=== PATIENT | female | born 1970 | race Caucasian/White ===

== ENCOUNTER 2021-04-11 15:47 | Observation (INO) | payer OTHER, SELFPAY ==
--- NOTE | ~2021-04-11 | XR_ITS ---
XR chest 1V portable DATE: 04/11/2021 16:51 INDICATION: Hypoglycemia. Speech difficulty. TECHNIQUE: Portable AP chest on 04/11/2021 at 1648 hours COMPARISON: None FINDINGS: Heart size is is likely within normal range considering magnification associated with AP pr ojection. No pulmonary infiltrate or consolidation, pleural effusion or pulmonary vascular congestion or pneumothorax is detected. IMPRESSION: No active cardiopulmonary disease Reviewed, dictated and finalized at location A.
--- NOTE | ~2021-04-11 | CT_ITS ---
EXAMINATION: CTA brain carotid EXAM DATE: 04/11/2021 17:42 INDICATION: Speech difficulty. Stroke. TECHNIQUE: Noncontrast head CT. Spiral CTA of the carotid arteries was performed with intravenous i njection 100 cc of Omnipaque 350. Axial, coronal, sagittal reformatted images reviewed. Additional r eformatted images created on dedicated 3-D workstation. NASCET comparable standard used to assess th e degree of arterial stenosis. Spiral CT angiogram cerebral arteries performed with the same intrave nous injection of contrast. Source images of the brain CTA transferred to dedicated workstation for 3 -D rotational image creation. Coronal, sagittal maximum intensity pixel images also reviewed. The d ose-length product (DLP) for this examination was 1495.37 mGy-cm. The exposure was tailored accordi ng to patient size, and iterative reconstruction (ASIR) was used as additional dose reduction techniq ue. There is no prior study for comparison. FINDINGS: There is no carotid plaque, 0% carotid stenosis bilaterally. The left vertebral artery is d ominant. There is no carotid or vertebral basilar arterial dissection or fibromuscular dysplasia. Th ere are no cerebral artery aneurysms. There is symmetric cerebral artery arborization. The sagittal, transverse and sigmoid sinuses enhance normally, no venous sinus thrombosis. Internal cerebral veins also enhance normally. There is mild cerebral atrophy and moderate cerebellar atrophy There is no acute intraparenchymal hem orrhage. No evidence of intraparenchymal brain mass lesion. No evidence of acute infarction. There is no mass effect or midline shift. There is no obstructive hydrocephalus suspected. There are no ex tra-axial collections. There are no calvarial acute fractures. Mild to moderate cervical spondylosis . There are no areas of abnormal enhancement on the post contrast images. IMPRESSION: 1. No acute carotid or intracranial findings. 2. Moderate cerebellar, mild cerebral atrophy. Reviewed, dictated and finalized at location A.
--- NOTE | ~2021-04-11 | MR_ITS ---
EXAMINATION: MR brain/brain stem wo/w con DATE: 04/12/2021 10:45 INDICATION: Speech deficit. TECHNIQUE: Magnetic resonance imaging (MRI) of the brain and brainstem was performed without with 14 mL MultiHance intravenous contrast. Sequences included sagittal and axial T1-weighted FSE, axial diff usion-weighted FS EPI, axial T2*-weighted GRE, axial T2-weighted FLAIR Propeller, and axial T2-weight ed Propeller. Postcontrast sequences included axial and coronal T1-weighted FSE. Apparent diffusion c oefficient (ADC) maps were created. COMPARISON: Head CT 04/11/2021 FINDINGS: The cerebellum is small. There is no intracranial hemorrhage, acute infarction, or abnormal intracranial mass lesion. The ventricles are normal in size. There is mild mucosal thickening in the paranasal sinuses. The orbits are normal. There are small bilateral mastoid effusions. IMPRESSION: 1. Diffuse cerebellar atrophy. Reviewed, dictated and finalized at location B.
[2021-04-11 15:55] VITALS: BP 163/84; PULSE 71; RESP 18; TEMP 36.6; O2SAT 100
--- NOTE | 2021-04-11 16:41 | ECG_ITS ---
Measurements Intervals [place] Rate: 74 P: 50 WI: 159 QRS: -18 QRSD: 86 T: -3 QT: 381 QTc: 424 Interpretive Statements SINUS RHYTHM INCOMPLETE RIGHT BUNDLE BRANCH BLOCK LOW QRS VOLTAGE IN PRECORDIAL LEADS VOLTAGE CRITERIA FOR LVH MINIMAL Q WAVES- HIGH LATERAL LEADS BORDERLINE T WAVE ABNORMALITY- INFERIOR LEADS BASELINE ARTIFACT- I, II, III, AVR, AVL, AVF, V3 BORDERLINE ECG Electronically Signed On 04-11-2021 19:35:08 CDT by Wilmer Diaz D.O.
--- NOTE | 2021-04-11 16:42 | ED.GENADULT ---
HPI - General Adult General Chief complaint: Neuro Symptoms/Deficit Stated complaint: SPEECH DIFFICULTY Time Seen by Provider: 04/11/21 16:26 Source: patient and EMS Mode of arrival: EMS Limitations: no limitations History of Present Illness HPI narrative: This is a 50 year old female with history of Diabetes Mellitus and cerebellar ataxia who presents for evaluation of hypoglycemia and speech difficulty. Patient states at baseline she has speech difficulty since her diagnosis of cerebellar ataxia 2 years ago . She states today around 230 pm her blood sugar dropped to 40 after she was given insulin. At that time, she also noticed that her speech seemed more off than usually. She denies focal weakness, numbness, tingling or headache. She denies chest pain, sob, nausea, vomiting or vision change. Related Data Home Medications Medication Instructions Recorded Confirmed aspirin [Adult Low Dose Aspirin] 81 mg PO DAILY 04/11/21 04/11/21 furosemide 20 mg PO DAILY 04/11/21 04/11/21 gabapentin 100 mg PO TID 04/11/21 04/11/21 insulin glargine [Basaglar KwikPen 18 unit SUBCUT QAM 04/11/21 04/11/21 U-100 Insulin] insulin lispro [Admelog SoloStar 5 unit SUBCUT TID 04/11/21 04/11/21 U-100 Insulin] lisinopril 10 mg PO DAILY 04/11/21 04/11/21 loratadine [Claritin] 10 mg PO DAILY 04/11/21 04/11/21 Allergies Allergy/AdvReac Type Severity Reaction Status Date / Time ibuprofen AdvReac Unknown Verified 04/11/21 21:44 Penicillins AdvReac Unknown Verified 04/11/21 21:44 Sulfa (Sulfonamide AdvReac Unknown Verified 04/11/21 21:44 Antibiotics) Review of Systems Review of Systems: All systems reviewed & are unremarkable except as noted in HPI and below Constitutional: Constitutional: Denies chills and Denies fever(s) Eyes: Eyes: Denies change in vision Cardiovascular: Cardiovascular: Denies chest pain and Denies radiating jaw, neck or arm pain Respiratory: Respiratory: Denies cough and Denies dyspnea Gastrointestinal: Gastrointestinal: Denies abdominal pain, Denies nausea and Denies vomiting Neurologic: Denies dizziness, Denies headache(s), Denies focal weakness and Denies numbness PMFSH Past Medical History Medical History (Updated 04/11/21 @ 23:17 by Mónica Hicks MD) Cerebellar ataxia Social History Social History Smoking status: Never smoker Alcohol intake: never Substance use: never Substance use type: does not use Gender identity (if verbalized by the patient): Female Spiritual care concerns: No Exam Const: General: no acute distress and alert Orientation/consciousness: patient oriented x3 Eyes: Pupils: Equal, round and reactive pupils present EOM: EOMs intact bilaterally Chest: Chest palpation & inspection: normal inspection of the chest Resp: Effort & Inspection: normal respiratory effort and no retractions Auscultation: clear to auscultation bilaterally Cardio: Rate: regular rate Rhythm: regular rhythm Heart sounds: no murmurs GI: GI Palp: Yes Soft to palpation, No Tenderness to palpation present (GI) and No Guarding due to palpation present (GI) Auscultation: normal bowel sounds Neuro: General: patient oriented x3, moves all extremities, no meningeal signs, no focal motor deficits and CN's II-XI intact bilaterally Cranial nerves: Yes CN's II-XII intact bilaterally and Yes Nystagmus not present Gait exam (Neuro): Ataxic gait present Motor exam (neuro): Pronator motor function not present Psych: Mental Status: mental status grossly normal Affect: normal affect Course Consultations Consultation #1: I spoke with Dr. Ryan. He will consult. PAtient does not appear to have acute findings. She just reports her chronic symptoms worsened when she became hypoglycemia. She has not focal deficits. Date: 04/11/21 Time: 18:21 Consultation #2: I spoke with hospitalist who accepts patient. Date: 04/11/21 Time: 19:00 Vital Signs Vital signs: Vital Signs Temperature
--- NOTE | 2021-04-11 16:51 | PC.NURSE ---
Pt BG 67 poc. EDP notified and pt given 8oz juice
[2021-04-11 16:53] LABS: Glucose Point of Care 67 (65-105)
[2021-04-11 17:03] LABS: Basophils Percent Auto 0.3 % (0.2-1.2); Eosinophils Absolute Auto 0.1 K/mm3 (0-0.3); Eosinophils Percent Auto 0.5 % (0-4.4); Hematocrit 41.5 % (37.0-47.0); Hemoglobin 13.1 g/dL (12.0-15.0); Immature Granulocyte Absolute 0.06 K/mm3 (0.00-0.031); Immature Granulocyte Percent A 0.5 % (0-0.5); Lymphocytes Absolute Auto 2.03 K/mm3 (0.9-3.2); Lymphocytes Percent Auto 17.5 % (18.3-44.2); Mean Corpuscular HGB Conc 31.6 g/dl (32-36); Mean Corpuscular Volume 88.7 fl (80-100); Mean Platelet Volume 9.4 fl (7.4-10.4); Monocytes Absolute Auto 0.8 K/mm3 (0.1-0.6); Monocytes Percent Auto 7.1 % (2.6-8.5); Neutrophils Absolute Auto 8.6 K/mm3 (1.3-6.7); Neutrophils Percent Auto 74.1 % (45.5-73.1); Platelet Count Result 337 k/mm3 (150-375); Red Blood Count 4.68 M/mm3 (4.2-5.4); Red Cell Distribution Width 12.8 % (11.5-14.5); White Blood Count 11.6 K/mm3 (4.5-10.0)
[2021-04-11 17:13] LABS: Anion Gap 1 mmol/L (8-16); Blood Urea Nitrogen 31 mg/dL (7-17); Calcium 9.4 mg/dL (8.4-10.2); Carbon Dioxide 35 mmol/L (22-30); Chloride 101 mmol/L (98-107); Estimated CRCL calculation 65 ml/min; Estimated Glomerular Filt Rate > 60; Glucose 78 mg/dL (65-105); Potassium 4.7 mmol/L (3.4-5.0); Sodium 137 mmol/L (137-145)
[2021-04-11 17:16] LABS: INR 0.9; Prothrombin Time 12.3 Seconds (11.1-14.7)
[2021-04-11 17:17] LABS: Partial Thromboplastin Time 27.7 SECONDS (22.3-36.8)
[2021-04-11 17:25] LABS: Troponin I < 0.012 ng/mL (0.000-0.034)
[2021-04-11 18:07] LABS: Add Urine Microscopic? YES; Appearance Urine Clear (Clear); Bilirubin Urine Negative (Negative); Blood Urine Negative (Negative); Color Urine Straw (Yellow); Glucose Urine UA Negative (Negative); Ketones Urine Negative (Negative); Leukocyte Esterase Ur Trace LEU/UL (Negative); Nitrate Urine Negative (Negative); Protein Urine Negative (Negative); RBC Urine 0-2 /hpf (0-2); Urobilinogen Urine Negative mg/dL (<2.0)
[2021-04-11 19:13] VITALS: BP 128/69; PULSE 68; RESP 16; O2SAT 100
[2021-04-11 19:20] LABS: Glucose Point of Care 89 (65-105)
--- NOTE | 2021-04-11 19:46 | PM.IMHP ---
H&P: HPI History of Present Illness Date/Time: 04/11/21 19:46 Chief Complaint: This is a 50-year-old female with past medical history significant for insulin-dependent diabetes mellitus cerebellar ataxia patient presented to the emergency room after she had an episode of slurred speech her sugar was 40 at this time she was given glucose gel. Patient was brought to the emergency room by EMS. According to patient she has been in her usual state of health up until this happened she denies any fevers chills or rigors no nausea no vomiting no diarrhea no shortness of breath no cough no sputum production no pain or burning with urination no focal weakness no dysphagia no abdominal pain no leg swelling no palpitations no chest pain. Preliminary workup was essentially nonrevealing patient states that she is back to her usual. A CT of the head show no acute abnormalities. Patient has been placed in observation. Review of Systems Review of Systems: All systems reviewed & are unremarkable except as noted in HPI and below Constitutional: Constitutional: Denies chills, Denies fever(s) and Denies headache(s) Eyes: Eyes: Denies change in vision ENT: Denies dizziness and Denies headache(s) Cardiovascular: Cardiovascular: Denies chest pain, Denies radiating jaw, neck or arm pain and Denies dyspnea Respiratory: Respiratory: Denies cough and Denies dyspnea Gastrointestinal: Gastrointestinal: Denies abdominal pain, Denies nausea and Denies vomiting Musculoskeletal: Musculoskeletal: Denies numbness Neurologic: Denies dizziness, Denies headache(s), Denies focal weakness and Denies numbness [facility] Past Medical History Medical History (Updated 04/11/21 @ 21:43 by Estrella Nixon MD) Cerebellar ataxia Social History Social History Smoking status: Never smoker Alcohol intake: never Substance use: never Substance use type: does not use Gender identity (if verbalized by the patient): Female Spiritual care concerns: No Meds Home Medications and Allergies Home Medications Medication Instructions Recorded Confirmed Type aspirin [Adult Low Dose Aspirin] 81 mg PO DAILY 04/11/21 04/11/21 History furosemide 20 mg PO DAILY 04/11/21 04/11/21 History gabapentin 100 mg PO TID 04/11/21 04/11/21 History insulin glargine [Basaglar KwikPen 18 unit SUBCUT QA 04/11/21 04/11/21 History U-100 Insulin] insulin lispro [Admelog SoloStar 5 unit SUBCUT TID 04/11/21 04/11/21 History U-100 Insulin] lisinopril 10 mg PO DAILY 04/11/21 04/11/21 History loratadine [Claritin] 10 mg PO DAILY 04/11/21 04/11/21 History Allergies Allergy/AdvReac Type Severity Reaction Status Date / Time ibuprofen AdvReac Unknown Verified 04/11/21 21:44 Penicillins AdvReac Unknown Verified 04/11/21 21:44 Sulfa (Sulfonamide AdvReac Unknown Verified 04/11/21 21:44 Antibiotics) Vital Signs Vital Signs - 24 hr 04/11/21 15:55 04/11/21 19:13 Temperature 97.9 F Pulse Rate 71 68 Respiratory Rate 18 16 Blood Pressure 163/84 H 128/69 Pulse Oximetry 100 100 Exam Narrative: Exam Narrative: Lying in [facility] Const: General: no acute distress and alert Orientation/consciousness: patient oriented x3 HENMT: Head: normal to inspection and normocephalic Ears: hearing grossly normal bilaterally General nose exam: Normal external nose present Face and sinus: normal facial exam Mouth: Yes Normal oral and palatal mucosa present Teeth and gingiva: dentition normal Throat: posterior oropharynx normal Eyes: EOM: EOMs intact bilaterally Neck: Neck: no meningeal signs Resp: Effort & Inspection: normal respiratory effort and no retractions Auscultation: clear to auscultation bilaterally Cardio: Rate: regular rate Rhythm: regular rhythm Heart sounds: no murmurs GI: Auscultation: normal bowel sounds Skin: General skin exam: normal color and turgor normal Lesions: no lesions Rashes: no rashes Wounds: no wounds Neuro: General: patient
--- NOTE | 2021-04-11 21:01 | ADMGEN ---
This patient, Martha Christopher, was admitted to Medical Room [facility]- at 2049. Patient/family oriented to hospital policies and general routines including ID bracelet, bed and alarms, visiting hours, pain management, procedures, bathroom and other care routines, personal items, smoking policy, room service/diet, and visiting hours. Information on how to activate the Rapid Response Team has been discussed. Patient/Family are encouraged to report perceived risks to care and to ask questions if they do not understand what they are told or what they should do.
[2021-04-11 21:02] VITALS: PULSE 89
[2021-04-11 21:29] LABS: Glucose Point of Care 237 (65-105)
[2021-04-11 22:00] VITALS: BP 142/58; PULSE 93; RESP 21; TEMP 36.7; O2SAT 100; BMI 30.1
[2021-04-12] VITALS (7 sets, daily range): BP systolic 116–128; BP diastolic 68–74; PULSE 61–108; RESP 18–20; TEMP 36.1–36.8; O2SAT 98
[2021-04-12 07:56] LABS: Glucose Point of Care 140 (65-105)
--- NOTE | 2021-04-12 08:00 | PC.NURSE ---
Christal Fajardo Pa notified of glucose 140 and pt eating breakfast and home dose of insulin held on admission.
[2021-04-12] MEDS: GABAPENTIN 100 MG CAPSULE PO (08:33)
[2021-04-12] MEDS: lisinopriL 10 MG TABLET PO (08:33)
[2021-04-12] MEDS: LORATADINE 10 MG TABLET PO (08:33)
[2021-04-12] MEDS: ASPIRIN 81 MG CHEWABLE TABLET PO (08:33)
[2021-04-12] MEDS: FUROSEMIDE 20 MG TABLET PO (08:33)
[2021-04-12 09:14] LABS: Hemoglobin A1C 8.4 % (<5.7)
[2021-04-12 09:18] LABS: Hematocrit 39.9 % (37.0-47.0); Hemoglobin 12.8 g/dL (12.0-15.0); Mean Corpuscular HGB Conc 32.1 g/dl (32-36); Mean Corpuscular Hemoglobin 28.1 pg (26-34); Mean Corpuscular Volume 87.7 fl (80-100); Mean Platelet Volume 9.7 fl (7.4-10.4); Platelet Count Result 325 k/mm3 (150-375); Red Blood Count 4.55 M/mm3 (4.2-5.4); White Blood Count 7.8 K/mm3 (4.5-10.0)
[2021-04-12 09:19] LABS: Potassium 4.6 mmol/L (3.4-5.0)
[2021-04-12 09:28] LABS: Anion Gap 0 mmol/L (8-16); Blood Urea Nitrogen 22 mg/dL (7-17); Calcium 9.1 mg/dL (8.4-10.2); Carbon Dioxide 33 mmol/L (22-30); Chloride 103 mmol/L (98-107); Estimated CRCL calculation 65 ml/min; Estimated Glomerular Filt Rate > 60; Glucose 197 mg/dL (65-105); Sodium 136 mmol/L (137-145)
--- NOTE | 2021-04-12 10:57 | PC.NURSE ---
Christal UP notified of glucose 319 and no insulin ordered. She will put in new med orders.
[2021-04-12 11:04] LABS: Glucose Point of Care 319 (65-105)
[2021-04-12] MEDS: INSULIN GLARGINE (*BKC) 100 UNITS/ML 18 UNITS SUB-Q (11:12)
[2021-04-12] MEDS: INSULIN ASPART (*BKC) 100 UNITS/ML SUB-Q (11:12)
--- NOTE | 2021-04-12 12:59 | PM.DS ---
DS: Admitting Diagnosis Admitting Diagnosis Admitting Diagnosis: Hypoglycemia DS: Discharge Diagnosis Discharge Diagnosis (1) Hypoglycemia due to type 1 diabetes mellitus: Code(s): E10.649 - Type 1 diabetes mellitus with hypoglycemia without coma Status: Acute Assessment and Plan: Presented with blood sugar of 40 after receiving her insulin. She reports she has been eating regularly and had not been ill. She very rarely has hypoglycemic episodes. She reports nursing staff assists her with her medications but notes that she may have received too much insulin. Blood sugars improved and she had no further episodes of hypoglycemia. A1c 8.4. No changes were made to her insulin regimen. She is established with an gas usage meter clerk and has follow up scheduled in 1 month. Discussed importance of monitoring glucose levels, maintaining diabetic diet, and strict adherance to insulin regimen. Hypoglycemic protocol should be initiated at [facility]. (2) Speech disturbance: Code(s): R47.9 - Unspecified speech disturbances Status: Acute Assessment and Plan: Chronic due to cerebellar dysfunction worsened by hypoglycemia. Initially concerned for CVA at presentation, however head/neck CTA and brain MRI ordered in ED were negative for acute findings. She has slow speech secondary to her cerebellar dysfunction but her speech was at her baseline following resolution of hypoglycemic episode. (3) Cerebellar ataxia: Code(s): G11.9 - Hereditary ataxia, unspecified Status: Acute Assessment and Plan: No acute issues. Cerebellar atrophy noted on brain MRI. Follow-up with PCP as an outpatient. DS: Summary Hospital Course Hospital Course: Date of admission: 04/11/21 Date of discharge: 04/12/21 Martha Christopher is a 50 year old female with a history of type 1 diabetes mellitus and cerebellar ataxia who presented to the emergency department on 04/11/2021 from her detention due to concerns for speech changes from her baseline and was found to have a blood sugar of 40. Upon presentation to the emergency department, her vital signs were stable, CBC and BMP unremarkable, troponin negative, urinalysis without concerns for infection, CXR with no cardiopulmonary disease, and head/neck CTA with no acute carotid or intracranial findings. She was admitted to the hospitalist service for further evaluation and management. Please see above for further details. She was at her baseline. She was tolerating her diet and her blood sugars were stable. Given her overall improvement, she was determined to no longer require inpatient care and was felt to be stable for discharge. We discussed worrisome signs and symptoms for which to return and she was educated on her medications. She was discharged in hemodynamically stable condition on 04/12/2021. Status at Discharge Overall status at discharge: patient is back to baseline Time Spent with Patient Time attestation: Total time spent providing and/or coordinating discharge services: 45 minutes Time spent: Greater than 30 minutes Exam Narrative: Exam Narrative: Ms. Christopher is a well-nourished 50-year-old female who is lying semi-recumbent in bed. She appears comfortable and is in NARD. Neuro: awake, alert and oriented x4, speech slow but clear, no focal neuro deficits noted HEENMT: normocephalic, atraumatic, EOMI, sclerae anicteric, moist oral mucosa, tongue midline, nares patent Neck: supple, no lymphadenopathy Respiratory: clear to auscultation bilaterally, nonlabored breathing Cardio: regular rate, regular rhythm with S1-S2 Abdomen: nondistended, normoactive bowel sounds, soft, nontender to palpation, no rigidity or guarding Extremities: no edema, erythema, cyanosis, clubbing, or tenderness to palpation, DP pulses 2+ bilaterally Skin: no rashes or lesions, warm and dry Psych: appropriate mood and affect, judgment and insight intact DS: Data Data Completed and Pending
[2021-04-12 14:03] LABS: Glucose Point of Care 257 (65-105)
--- NOTE | 2021-04-12 15:27 | WPDNEURCNPN ---
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 no acute problem otherwise blood sugar is 256 with hemoglobin A1c 8.4 and negative UA patient is not receiving any specific medication except the aspirin insulin furosemide gabapentin lisinopril and loratadine treatment will be continued as such Consult date: 04/12/21 Time Seen: 15:00 HPI: Martha Christopher is a 50 year old [id number] years old right-handed female has been admitted to [facility] through the emergency room the complains of slurred speech and a blood sugar of 40 she was brought to the ER by EMS patient reportedly has been in her usual state of health up until this particular incident occurred she gave no history of any of the any other generalized symptomatology initial CT scan of the head was negative patient has ongoing history of cerebellar ataxia, never smoke, never drinker and on aspirin insulin gabapentin and furosemide in addition to lisinopril and loratadine. Evaluation up until now includes the MRI of the brain which documented cerebellar atrophy without any bleed or space-occupying lesion CTA also documented moderate cerebellar and mild cerebral atrophy with no evidence of vascular involvement Review of Systems Review of Systems: All systems reviewed & are unremarkable except as noted in HPI and below PMFSH Past Medical History Medical History Cerebellar ataxia Social History Social History Smoking status: Never smoker Alcohol intake: never Substance use: never Substance use type: does not use Gender identity (if verbalized by the patient): Female Spiritual care concerns: No Meds Home Medications and Allergies Home Medications Medication Instructions Recorded Confirmed Type Eduarda ZhangPen U-100 Insulin 18 unit SUBCUT QAM 04/11/21 04/11/21 History aspirin 81 mg PO DAILY 04/11/21 04/11/21 History furosemide 20 mg PO DAILY 04/11/21 04/11/21 History gabapentin 100 mg PO TID 04/11/21 04/11/21 History insulin lispro [Admelog SoloStar 5 unit SUBCUT TID 04/11/21 04/11/21 History U-100 Insulin] lisinopril 10 mg PO DAILY 04/11/21 04/11/21 History loratadine [Claritin] 10 mg PO DAILY 05/13/21 05/13/21 History Allergies Allergy/AdvReac Type Severity Reaction Status Date / Time ibuprofen AdvReac Unknown Verified 04/11/21 21:44 Penicillins AdvReac Unknown Verified 04/11/21 21:44 Sulfa (Sulfonamide AdvReac Unknown Verified 04/11/21 21:44 Antibiotics) Vital Signs Vital Signs - 24 hr 04/11/21 15:55 04/11/21 19:13 04/11/21 21:02 Temperature 36.6 C Pulse Rate 71 68 89 Respiratory Rate 18 16 Blood Pressure 163/84 H 128/69 Pulse Oximetry 100 100 04/11/21 22:00 04/12/21 00:14 04/12/21 04:00 Temperature 36.7 C Pulse Rate 93 75 61 Respiratory Rate 21 H Blood Pressure 142/58 H Pulse Oximetry 100 04/12/21 06:00 04/12/21 08:00 04/12/21 08:04 Temperature 36.8 C Pulse Rate 81 74 81 Respiratory Rate 20 20 Blood Pressure 128/68 Pulse Oximetry 98 98 04/12/21 12:04 04/12/21 14:00 Temperature 36.1 C L Pulse Rate 108 H 79 Respiratory Rate 18 Blood Pressure 116/74 Pulse Oximetry 98 Exam Const: General: cooperative, comfortable, no acute distress, alert and awake Nutritional Appearance: average body habitus and well nourished Orientation/consciousness: oriented to person, oriented to place and oriented to time Limitations: physical limitations HENMT: Head: normal to inspection and normocephalic Ears: hearing grossly normal bilaterally General nose exam: Normal external nose present Face and sinus: normal facial exam and face symmetric Mouth: Yes Normal oral and palatal mucosa present, Yes lip normal and Yes tongue normal Eyes: General: appearance normal, both eyes and all related structures Visual Null: normal visual null by confrontation Alig
== END 2021-04-12 15:55 ==
LOC: ANHED 16:26 → ANH2MED 20:11
PROVIDERS: Physician Assistant; Admitting Provider Internal Medicine; Emergency Provider General Practice; PCP Internal Medicine; Visit Provider Internal Medicine
DX: E10.649 Type 1 diabetes mellitus with hypoglycemia without coma (principal); R47.81 Slurred speech; G11.9 Hereditary ataxia, unspecified; Z79.4 Long term (current) use of insulin
CPT/HCPCS: 36415; 70496; 70498; 70553; 71045; 80048; 81001; 82948; 83036; 84484; 85025; 85027; 85610; 85730; 93005; 99285; A9270; A9577; G0378; G0379; J1815; Q9967

== ENCOUNTER 2024-10-07 15:01 | Emergency (ER) | payer MEDICARE, SELFPAY ==
--- NOTE | ~2024-10-07 | XR_ITS ---
EXAMINATION: XR chest 2V DATE: 10/07/2024 15:28 INDICATION: Chest pain. TECHNIQUE: Frontal and lateral views of the chest were obtained. COMPARISON: Chest single view 04/11/2021 FINDINGS: There are reticular opacities in the lower lung zones. No pleural effusion or pneumothorax. The heart size is normal. There is chronic height loss of multiple vertebral bodies. There is a gall stone in the gallbladder. IMPRESSION: 1. Reticular opacities in the lower lung zones, consistent with atelectasis versus scarring. Reviewed, dictated and finalized at location A. MOMETER OPERATOR IMPRESSION: 1. Reticular opacities in the lower lung zones, consistent with atelectasis john paul em scarring.
--- NOTE | 2024-10-07 15:04 | ECG_ITS ---
Test Date: 2024-10-07 15:11:26 Measurements Intervals [place] Rate: 68 P: 52 [place]: 153 QRS: -27 QRSD: 86 T: 17 QT: 375 QTc: 399 Interpretive Statements SINUS RHYTHM POSSIBLE LEFT ATRIAL ENLARGEMENT INCOMPLETE RIGHT BUNDLE BRANCH BLOCK LOW QRS VOLTAGE IN PRECORDIAL LEADS MINIMAL Q WAVES- HIGH LATERAL LEADS BORDERLINE T WAVE ABNORMALITY- ANTERIOR LEADS BASELINE ARTIFACT- I, II, III, AVR, AVL ,AVF, V1-V2 BORDERLINE ECG No previous ECG available for comparison Electronically Signed On 10-07-2024 15:13:26 [employer] by Wilmer Diaz D.O.
[2024-10-07 15:05] VITALS: BP 142/67; PULSE 69; RESP 16; TEMP 36.4; O2SAT 92
--- NOTE | 2024-10-07 17:25 | PC.NURSE ---
Pts sister called to state pt is an insulin dependent diabetic.
[2024-10-07 17:51] LABS: Glucose Point of Care 113 mg/dl (65-105)
--- NOTE | 2024-10-07 18:22 | ED_ITS ---
HPI - Chest Pain General Chief Complaint: Chest Pain Stated Complaint: CP Time Seen by Provider: 10/07/24 18:06 Source: patient Mode of arrival: ambulatory Limitations: no limitations History of Present Illness HPI narrative: 54-year-old female here for chest pain. Started about an hour prior to arrival and given how crowded the ER was, 4 hours prior to me seeing her. She says it was central, felt like squeezing, but is gone now. Lasted about an hour. Took an aspirin. She got 2 nitroglycerin was in EMS and does not feel like it did very much for it. Related Data Home Medications Medication Instructions Recorded Confirmed aspirin 81 mg tablet 81 mg PO DAILY 04/11/21 04/11/21 furosemide 20 mg tablet 20 mg PO DAILY 04/11/21 04/11/21 gabapentin 100 mg tablet 100 mg PO TID 04/11/21 04/11/21 insulin glargine 100 unit/mL (3 18 unit subcut QAM 04/11/21 04/11/21 mL) subcutaneous pen (Basaglar KwikPen U-100 Insulin) insulin lispro 100 unit/mL 5 unit subcut TID 04/11/21 04/11/21 subcutaneous pen (Admelog SoloStar U-100 Insulin lispro) lisinopril 10 mg tablet 10 mg PO DAILY 04/11/21 04/11/21 loratadine 10 mg tablet (Claritin) 10 mg PO DAILY 04/11/21 04/11/21 Allergies Allergy/AdvReac Type Severity Reaction Status Date / Time ibuprofen AdvReac Unknown Verified 06/03/22 16:01 Penicillins AdvReac Unknown Verified 06/03/22 16:01 Sulfa (Sulfonamide AdvReac Unknown Verified 06/03/22 16:01 Antibiotics) Review of Systems Review of Systems: All systems reviewed & are unremarkable except as noted in HPI and below PMFSH Past Medical History Medical History Cerebellar ataxia Type 1 diabetes mellitus Social History Social History Smoking status: Never smoker Alcohol intake: never Substance use: never Substance use type: does not use Gender identity (if verbalized by the patient): Female Spiritual care concerns: No Exam Narrative: Constitutional: Generally well appearing, no acute distress Head: Atraumatic, no deformities. Eyes: Pupils equal, round, and reactive to light. Neck: Supple, no tracheal deviation, no JVD. ENMT: Mucous membranes moist Cardiovascular: S1, S2 auscultated. No murmurs, rubs, or gallops. No S3/S4. Normal Distal pulses. No peripheral edema. Respiratory: Lung sounds equal. No wheezes, rales, or rhonchi. Gastrointestinal: Abdomen was soft and non-tender. Non-distended. No rebound or guarding. Genitourinary: Deferred Musculoskeletal: Normal muscle tone and bulk. No obvious deformities or tend erness over extremities. Skin: No rashes. Neurological: Strength 5/5 in extremities. Cranial nerves I-XII grossly intact. Distal sensation intact. Mental Status: Awake, alert and oriented x3. Follows commands Course Vital Signs Vital signs: Vital Signs Temperature 36.4 C 10/07/24 15:05 Pulse Rate 69 10/07/24 15:05 Respiratory Rate 16 10/07/24 15:05 Blood Pressure 142/67 H 10/07/24 15:05 Pulse Oximetry 92 10/07/24 15:05 Oxygen Delivery Room Air 10/07/24 15:05 Temperature 36.4 C 10/07/24 15:05 Pulse Rate 78 10/07/24 19:23 Respiratory Rate 15 10/07/24 19:23 Blood Pressure 135/60 10/07/24 19:23 Pulse Oximetry 98 10/07/24 19:23 Oxygen Delivery Room Air 10/07/24 18:29 MDM - Chest Pain MDM Narrative Medical decision making narrative: 54-year-old female here for chest pain. Unfortunately she was in the waiting room for 3 hours. Currently chest pain is a 1/10. Exam is reassuring and she is very well-appearing. Plan to obtain cardiac workup. Concern for ACS. Wells score is 0. Making PE very unlikely. Workup shows no focal abnormality patient has been asymptomatic for several hours now. Heart score is low risk. Discussed with patient that she can return at any time if she develops any new or worsening symptoms that she needs to return immediately. Pt feeling improved and would like to go home at this point. Return precautions were given to the patient include any new or worsening symptoms or development of and not limited to any chest pain, shortness of breath, lightheadedness, abdominal pain, fevers, chills. Patient understands and agrees. They are to follow-up with her PCP. All questions were answered. I reviewed the patient's vital signs, history, allergies, and labs and imaging workup. Lab Data 10/07/24 18:33 10/07/24 18:33 Labs: Lab Results 10/07/24 10/07/24 Range/Units 17:48 18:33 WBC 10.1 H (4.5-10.0) K/mm3 RBC 4.36 (4.2-5.4) M/mm3 Hgb 12.5 (12.0-15.0) g/dL Hct 38.0 (37.0-47.0) % MCV 87.2 (80-100) fl MCH 28.7 (26-34) pg MCHC 32.9 (32-36) g/dl RDW 13.1 (11.5-14.5) % Plt Count 294 (150-375) k/mm3 MPV 9.5 (7.4-10.4) fl Immature Gran % (Auto) 0.3 (0-0.5) % Neut % (Auto) 62.3 (45.5-73.1) % Lymph % (Auto) 28.7 (18.3-44.2) % [place] % (Auto) 6.8 (2.6-8.5) % Eos % (Auto) 1.5 (0-4.4) % Baso % (Auto) 0.4 (0.2-1.2) % Lymph # (Auto) 2.89 (0.9-3.2) K/mm3 [place] # (Auto) 0.7 H (0.1-0.6) K/mm3 Eos # (Auto) 0.2 (0-0.3) K/mm3 Baso # (Auto) 0.0 (0.0-0.1) K/mm3 Abs Immat Gran (auto) 0.03 (0.00-0.031) K/mm3 Absolute Neuts (auto) 6.3 (1.3-6.7) K/mm3 Absolute Nucleated RBC 0.000 (0.0-0.012) K/mm3 Nucleated RBC % 0.0 (0.0-0.2) % PT 12.7 (11.1-14.7) Seconds INR 0.9 APTT 26.2 (22.3-36.8) Seconds Sodium 135 L (137-145) mmol/L Potassium 4.8 (3.4-5.0) mmol/L Chloride 96 L (98-107) mmol/L Carbon Dioxide 31 H (22-30) mmol/L Anion Gap 8 (4-12) mmol/L BUN 22 H (7-17) mg/dL Creatinine 0.90 (0.7-1.0) mg/dL Estim Creat Clear Calc 60 ml/min Estimated GFR > 60 (59 - ) Glucose 128 H (65-110) mg/dL POC Capillary Glucose 113 H (65-105) mg/dl Calcium 9.5 (8.4-10.2) mg/dL Total Bilirubin 0.3 (0.2-1.3) mg/dL AST 26 (14-36) U/L ALT 19 (6-35) U/L Alkaline Phosphatase 91 (38-126) U/L Troponin I < 0.012 (0.000-0.034) ng/mL Total Protein 8.0 (6.3-8.2) g/dL Albumin 4.3 (3.5-5.1) g/dL Lipase 61 (23-300) U/L Critical Care Time Critical Care Time Critical Care Time: Yes Total Critical Care Time: 35 Discharge Plan Discharge Clinical Impression: Atypical chest pain Patient Disposition: Home, Self-Care Condition: Stable Instructions: Antibiotic Form, Chest Pain (ED) Prescriptions: No Action lisinopril 10 mg Tablet 10 mg PO DAILY aspirin 81 mg Tablet 81 mg PO DAILY furosemide 20 mg Tablet 20 mg PO DAILY loratadine [Claritin] 10 mg Tablet 10 mg PO DAILY gabapentin 100 mg Tablet 100 mg PO TID insulin lispro [Admelog SoloStar U-100 Insulin] 100 unit/mL Insulin Pen 5 unit SUBCUT TID Rx Instructions: TID with meals Basaglar KwikPen U-100 Insulin 100 unit/mL (3 mL) Insulin Pen 18 unit SUBCUT QAM Follow-up/Referrals: Otilio,ANNEL Douglass [Primary Care Provider] - Time of Disposition: 21:35
[2024-10-07 18:30] VITALS: BP 140/68; PULSE 83; RESP 16; O2SAT 100
[2024-10-07 18:40] LABS: Basophils Percent Auto 0.4 % (0.2-1.2); Eosinophils Absolute Auto 0.2 K/mm3 (0-0.3); Eosinophils Percent Auto 1.5 % (0-4.4); Hemoglobin 12.5 g/dL (12.0-15.0); Immature Granulocyte Absolute 0.03 K/mm3 (0.00-0.031); Immature Granulocyte Percent A 0.3 % (0-0.5); Lymphocytes Absolute Auto 2.89 K/mm3 (0.9-3.2); Lymphocytes Percent Auto 28.7 % (18.3-44.2); Mean Corpuscular HGB Conc 32.9 g/dl (32-36); Mean Corpuscular Hemoglobin 28.7 pg (26-34); Mean Corpuscular Volume 87.2 fl (80-100); Mean Platelet Volume 9.5 fl (7.4-10.4); Monocytes Absolute Auto 0.7 K/mm3 (0.1-0.6); Monocytes Percent Auto 6.8 % (2.6-8.5); Neutrophils Absolute Auto 6.3 K/mm3 (1.3-6.7); Neutrophils Percent Auto 62.3 % (45.5-73.1); Platelet Count Result 294 k/mm3 (150-375); Red Blood Count 4.36 M/mm3 (4.2-5.4); Red Cell Distribution Width 13.1 % (11.5-14.5); White Blood Count 10.1 K/mm3 (4.5-10.0)
[2024-10-07 18:51] LABS: Alanine Aminotransferase 19 U/L (6-35); Albumin Level 4.3 g/dL (3.5-5.1); Alkaline Phosphatase 91 U/L (38-126); Anion Gap 8 mmol/L (4-12); Aspartate Amino Transferase 26 U/L (14-36); Bilirubin,Total 0.3 mg/dL (0.2-1.3); Blood Urea Nitrogen 22 mg/dL (7-17); Calcium 9.5 mg/dL (8.4-10.2); Carbon Dioxide 31 mmol/L (22-30); Chloride 96 mmol/L (98-107); Estimated CRCL calculation 60 ml/min; Estimated Glomerular Filt Rate > 60; Glucose 128 mg/dL (65-110); Lipase 61 U/L (23-300); Potassium 4.8 mmol/L (3.4-5.0); Sodium 135 mmol/L (137-145)
[2024-10-07 18:53] LABS: INR 0.9; Prothrombin Time 12.7 Seconds (11.1-14.7)
[2024-10-07 18:54] LABS: Partial Thromboplastin Time 26.2 Seconds (22.3-36.8)
[2024-10-07] MEDS: dexAMETHasone SOD PHOS INJ 10 MG/ML 1 ML VIAL IV PUSH (18:57)
[2024-10-07 19:02] LABS: Troponin I < 0.012 ng/mL (0.000-0.034)
[2024-10-07 19:23] VITALS: BP 135/60; PULSE 78; RESP 15; O2SAT 98
--- NOTE | 2024-10-07 19:26 | PC.NURSE ---
Assumed care of pt after receiving report from MILLIE Del Cid @[phone]
[2024-10-07 21:44] VITALS: BP 145/65; PULSE 87; RESP 20; O2SAT 100
--- NOTE | 2024-10-07 21:50 | PC.NURSE ---
Patient up for dc but does not qualify for ambulance. This RN spoke with RN from [facility] regarding pts contacts. RN stated all of pts contacts live out of town and she would call back after speaking with her director. @[phone]
--- NOTE | 2024-10-07 22:30 | PC.NURSE ---
MILLIE Dougherty at [facility] called asking if pt could be admitted. This RN informed her that pts can not be admitted unless theres good reasoning. MILLIE Dougherty stated she would call the BOROUGH COORDINATOR of the facility to ask about paying for a taxi. @[phone]
--- NOTE | 2024-10-07 23:47 | PC.NURSE ---
Spoke with MILLIE Dougherty. RN stated they were trying to find someone within the facility who could pay burgos for pt cab ride back to facility. I informed RN that cab [employer] take cards over the phone. RN stated she would call cab company and call me back with update/ETA
[2024-10-07 23:52] VITALS: BP 141/72; PULSE 82; RESP 15; O2SAT 98
--- NOTE | 2024-10-08 00:05 | PC.NURSE ---
MILLIE Dougherty called stating their facility has paid for a cab for the pt and should be here in 10 minutes.
== END 2024-10-08 00:21 | disposition home or self-care (01) ==
PROVIDERS: Emergency Medicine; Emergency Provider Emergency Medicine; PCP Physician Assistant
DX: R07.89 Other chest pain (principal); E10.9 Type 1 diabetes mellitus without complications; Z79.4 Long term (current) use of insulin; Z79.82 Long term (current) use of aspirin
CPT/HCPCS: 36415; 71046; 80053; 82948; 83690; 84484; 85025; 85610; 85730; 93005; 96374; 99284; J1100

== ENCOUNTER 2025-03-24 00:11 | Emergency (ER) | payer MEDICARE, MEDICAID, SELFPAY ==
[2025-03-24] VITALS (55 sets, daily range): BP systolic 101–156; BP diastolic 52–81; PULSE 62–83; RESP 10–20; TEMP 36.4–36.6; O2SAT 94–100
--- NOTE | ~2025-03-24 | XR_ITS ---
Left Shoulder Technique: AP and axillary views were obtained. Clinical History: Pain Findings: No fracture or dislocation is seen. Osseous alignment is anatomic. The glenohumeral and acr omioclavicular joint spaces are preserved. Soft tissues are unremarkable. Impression: Unremarkable left shoulder radiographs. Reviewed, dictated and finalized at [facility]. Impression: Unremarkable left shoulder radiographs.
--- NOTE | ~2025-03-24 | XR_ITS ---
Clinical Indication: Chest pain PA and lateral views of the chest: Comparison: 10/07/2024 Findings: The lungs are clear, without evidence of focal consolidation or pleural effusion. Cardiome diastinal silhouette is within normal limits. Bones and soft tissues are unremarkable. Impression: Normal chest. Reviewed, dictated and finalized at location . Impression: Normal chest.
--- NOTE | 2025-03-24 00:16 | ECG_ITS ---
Test Date: 2025-03-24 00:18:12 Measurements Intervals [place] Rate: 79 P: 49 [place]: 133 QRS: -18 QRSD: 89 T: 36 QT: 382 QTc: 439 Interpretive Statements SINUS RHYTHM LOW QRS VOLTAGE IN PRECORDIAL LEADS POSSIBLE RIGHT VENTRICULAR CONDUCTION DELAY BASELINE ARTIFACT- I, III, AVR, AVL, AVF, V4-V6 BORDERLINE ECG Compared to ECG 10/07/2024 15:11:26 NO SIGNIFICANT CHANGE Electronically Signed On 03-24-2025 07:09:00 CDT by Wilmer Diaz D.O.
[2025-03-24 00:30] LABS: Basophils Percent Auto 0.4 % (0.2-1.2); Eosinophils Absolute Auto 0.2 K/mm3 (0-0.3); Eosinophils Percent Auto 2.1 % (0-4.4); Hematocrit 34.3 % (37.0-47.0); Hemoglobin 10.8 g/dL (12.0-15.0); Immature Granulocyte Absolute 0.04 K/mm3 (0.00-0.031); Immature Granulocyte Percent A 0.4 % (0-0.5); Lymphocytes Absolute Auto 2.88 K/mm3 (0.9-3.2); Lymphocytes Percent Auto 31.7 % (18.3-44.2); Mean Corpuscular HGB Conc 31.5 g/dl (32-36); Mean Corpuscular Volume 88.9 fl (80-100); Mean Platelet Volume 9.5 fl (7.4-10.4); Monocytes Absolute Auto 0.9 K/mm3 (0.1-0.6); Monocytes Percent Auto 9.5 % (2.6-8.5); Neutrophils Absolute Auto 5.1 K/mm3 (1.3-6.7); Neutrophils Percent Auto 55.9 % (45.5-73.1); Platelet Count Result 279 k/mm3 (150-375); Red Blood Count 3.86 M/mm3 (4.2-5.4); Red Cell Distribution Width 13.8 % (11.5-14.5); White Blood Count 9.1 K/mm3 (4.5-10.0)
[2025-03-24 00:39] LABS: Alanine Aminotransferase 22 U/L (6-35); Albumin Level 3.7 g/dL (3.5-5.1); Alkaline Phosphatase 90 U/L (38-126); Anion Gap 10 mmol/L (4-12); Aspartate Amino Transferase 26 U/L (14-36); Bilirubin,Total 0.2 mg/dL (0.2-1.3); Blood Urea Nitrogen 29 mg/dL (7-17); Calcium 8.6 mg/dL (8.4-10.2); Carbon Dioxide 27 mmol/L (22-30); Chloride 95 mmol/L (98-107); Estimated CRCL calculation 67 ml/min; Estimated Glomerular Filt Rate > 60; Glucose 287 mg/dL (65-110); Lipase 79 U/L (23-300); Potassium 4.1 mmol/L (3.4-5.0); Sodium 132 mmol/L (137-145)
[2025-03-24 00:50] LABS: Troponin I < 0.012 ng/mL (0.000-0.034)
[2025-03-24 00:51] LABS: INR 0.9; Prothrombin Time 12.5 Seconds (11.1-14.7)
--- OUTSIDE RECORDS SUMMARY | 2025-03-24 00:51 | XMS_ITS | Continuity of Care Document ---
Author Organization [facility] Address [address] [place] [address] Phone Care Team Providers Care Transmission Maintenance Supervisor Name Role Phone Salinas OD, Colby Unavailable Unavailable Procedures Procedure Date Cntct Lens Hydrophilic Toric Or Prism [facility] [employer] Eye Exam & Treatment Refraction Contact Lens Hydrophilic, Spherical [facility] CL Replacement - [employer] Other 00[employer] No Charge Contact Lens Check Eye Exam & Treatment Refraction No Charge Contact Lens Check Eye Exam & Treatment Refraction Advance Directives Directive Yes / No Effective Date File Name No Information Encounters Encounter Description Practice Location Reason(s) For Visit Diagnoses Date Provider Providers Copied on Encounter [facility], [id number] [place] [address] [address], [place], [place], [id number], [place] tel:[phone] [facility] No Information 8-201 0 Salinas OD Colby. [address] , [address], [place], [address], [place]. tel:[phone] [facility], [address], [place], [place], [id number], [place] tel:[phone] [facility] No Information Hima-1 0-201 0 Salinas OD Colby. [address] , [address], [place], [address], [place]. tel:[phone] [facility], [address] [place] [address] [address], [place], [place], [id number], [place] tel:[phone] [facility] [place] No Information Apr-0 9-201 0 Salinas OD Colby. [address] , [address], [place], [place], [facility], [place]. tel:[phone] [facility], [address] [place] [address] [address], [place], [place], [id number], [place] tel:[phone] [facility] [place] No Information Hima-2 8-200 9 Salinas OD Colby. [address] , [address], [place], [place], [facility], [place]. tel:[phone] [facility], [address] [place] [address] [address], [place], [place], [address], [place] tel:[phone] [facility] [place] No Information May-2 1-200 9 Salinas OD Colby. [address] , [address], [place], [place], [facility], [place]. tel:[phone] [facility], [address], [place], [place], [id number], [place] tel:[phone] [facility] No Information Hima-1 0-200 9 Salinas OD Colby. [address] , [address], [place], [address], [place]. tel:[phone] Referring Provider: Teofilo Mcmanus, [address] [place], [address]. tel:[phone] [facility], [address], [place], [place], [id number], [place] tel:[phone] [facility] No Information Mar-2 3-200 7 Salinas OD Colby. [address] , [address], [place], [address], [place]. tel:[phone] [facility], [address], [place], [place], [address], [place] tel:[phone] [facility] No Information Mar-0 7-200 7 Salinas OD Colby. [address] , [address], [place], [address], [place]. tel:[phone] Family History Family Member Type Diagnosis Age At Onset No Information Payers Payer name Insurance type Covered democrat ID Authoriza tion(s) No Information Social History Type Description Quantity Date Captured Comments Sex Female Smoking Status No Information Chief Complaint And Reason For Visit No Information Reason For Referral Reason For Referral No Information History Of Present Illness Encounter Date Complaint History Of Prese nt Illness No Information Functional Status Date Functional Assessmen t No Information Instructions Date Instruction Additional Infor mation No Information Assessments Type Assessment Date No Information Patient Care Teams Name Effective Dates (start - stop) Status Members No Information
--- OUTSIDE RECORDS SUMMARY | 2025-03-24 00:51 | XMS_ITS | Referral Summary ---
Author Organization [facility] Address [address] [place] [address] Care Team Providers Care Solid Waste Division Supervisor Name Role Phone Shiraz Magana MD Primary Care Provider [phone] Encounters Date Type Department Care Team Description 02/03/2025 Telephone [facility] Medical [facility] Diabetes Endocrine Care at [address] [place] [phone] Kasia Quesada NP 02/01/2025 Telephone [facility] Diabetes Endocrine Care at [address] [place] [phone] Kasia Quesada, FOUNDING PARTNER from Last 3 Months Allergies Active Allergy Reactions Criticality Noted Date Comments Ibuprofen Headache Low 08/24/2019 Penicillins Rash High Reaction: RASH, Sulfa Sulfa (Sulfonamide Antibiotics) Other (See comments) Medium Medications furosemide (LASIX) 20 mg tablet daily. 7 Active lisinopril (PRINIVIL,ZESTRI L) 10 mg tabletIndication s:Type 1 diabetes mellitus with hypoglycemia and without coma (HCC) Take 1 tablet (10 mg total) by mouth daily 90 tablet 3 9 Active gabapentin (NEURONTIN) 100 mg capsule Take 1 capsule (100 mg total) by mouth 3 (three) times a day 0 Active loratadine (CLARITIN) 10 mg tablet Take 1 tablet (10 mg total) by mouth daily Active aspirin 81 mg enteric coated tablet Take 1 tablet (81 mg total) by mouth daily Active glucagon (glucagon) 1 mg kit Apply topically 0 Active atorvastatin (LIPITOR) 20 mg tablet Take 1 tablet (20 mg total) by mouth daily 30 tablet 11 2 Active LEVEMIR 100 unit/mL (3 mL) pen for injection 18 units in the AM 10 units in the PM 2 Active NovoLOG 100 unit/mL (3 mL) pen for injection 2 Active Novofine Autocover 30 gauge x /3 needle 2 Active fluticasone propionate (FLONASE) 50 mcg/actuation nasal spray 3 Active BD Ultra-Fine Mini Pen Needle 31 gauge x 02/12 needleIndication s:Type 1 diabetes mellitus with hypoglycemia and without coma (HCC) USE 1 SIX TIMES DAILY 600 each 3 4 Active flash glucose scanning reader misc 1 Device continuously To read freestyle kayode 3 sensor. E10.65 1 each 1 4 Active FreeStyle Kayode 3 Plus Sensor device 1 Device continuously Monitor blood sugar. E1065 6 each 4 4 Active Active Problems Problem Noted Date Diagnosed Date Hypertension, essential 05/13/2022 Assessment & Plan (05/29/2022 11:29 PM CDT): Well controlled on the current regimen. Avoidance of salt, proper body weight, and routine exercise recommended. BPPV (benign paroxysmal positional vertigo) 04/30 Assessment & Plan (05/29/2022 11:29 PM CDT): Meclizine p.r.n. and vestibular therapy if worsens. At moderate risk for fall 11/18/2021 Assessment & Plan (11/18/2021 6:55 PM MONITOR CAR OPERATOR): Walk in well lit rooms without clutter on the floor and use handrails on all stair cases. Fracture of right tibial plateau 11/07/2021 Overview (11/07/2021): No surgery needed, bmd ordered 11/07/21 Assessment & Plan (05/29/2022 11:30 PM CDT): Calcium, vitamin-D, weight-bearing exercise and complete bone density scan her convenience and call back for results Assessment & Plan (11/18/2021 6:55 PM MONITOR CAR OPERATOR): Calcium, vitamin-D, weight-bearing exercise bone density scan ordered and call back for results. Type 1 diabetes mellitus with hyperlipidemia 11/2020 Assessment & Plan (10/26/2024 1:28 PM MONITOR CAR OPERATOR): This is a chronic condition which is Worsening, not at goal with reported hypoglycemia events around noon. . Goal is less than 7%. We will proceed with continuous glucose monitoring and returned to correctional insulin Personally reviewed most recent A1c - Lab Results Component Value Date HGBA1C 9.1 10/26/2024 Personally reviewed POC blood sugar- elevated, not at goal of 80-180 Lab Results Component Value Date POCGLU 290 10/26/2024 Medication- continue Levemir 14 units in am and 14 units is pm , continue Humalog 8 units with correctional insulin for meals. 70-200- 0 correction 200-250- 2 units 251-300- 3 units 301-350- 4 units 351-400- 5 units 401-450- 6 units 451-450- or higher 7 units. Decrease fast acting Humalog to 4 units if blood sugar is less than 120 Hold humalog when patient is not eating. Monitor blood sugar continuously with cgm. Encouraged annual eye exam. eGFR- needed and labs obtain Urine microalbumin/creatinine ratio - needed and obtained. Goal is <30 Continue Lasix, lisinopril Lipid panel needed. Goal is LDL less than 70 Continue atorvastatin Encouraged to eat healthy, include fresh fruits and vegetables daily and avoid eating fried foods more than once per week. Assessment & Plan (05/11/2023 4:50 PM CDT): This is a chronic condition which is close to goal of LDL less than 70 Continue atorvastatin Encouraged to eat healthy, include fresh fruits and vegetables daily and avoid eating fried foods more than once per week. Encouraged to take medications as prescribed. Assessment & Plan (12/30/2022 2:04 PM MONITOR CAR OPERATOR): This is a chronic condition which is not at goal of LDL less than 70 Continue atorvastatin Encouraged to eat healthy, include fresh fruits and vegetables daily and avoid eating fried foods more than once per week. Encouraged to take medications as prescribed. Assessment & Plan (05/29/2022 11:29 PM CDT): Continue current medication regimen and follow-up with her component prep operator as they direct. Assessment & Plan (11/18/2021 6:54 PM MONITOR CAR OPERATOR): A1c, LDL, and blood pressure currently well controlled on current regimen. Check a yearly diabetic eye exam and blood sugars daily. Monofilament testing is intact. Assessment & Plan (04/30/2021 10:16 AM CDT): Importance of diet and exercise compliance discussed at length. Continue current insulin regimen and follow-up with her component prep operator for management as they direct. Welcome to Medicare preventive visit 10/21/2020 Assessment & Plan (11/18/2021 6:56 PM MONITOR CAR OPERATOR): We discussed a comprehensive list of medical conditions and proposed recommendations for each. We discussed the importance of increased exercise, fall prevention, proper nutrition, and suggested joining [facility] to accomplish most of these goals. Patient was given an age appropriate Medicare preventive services checklist. Please see the EMR regarding details of their health risk assessment and preventive services checklist. Will see her back in 6 months with lab sooner if needed. Assessment & Plan (10/21/2020 3:16 PM MONITOR CAR OPERATOR): Flu shot each August. Tetanus booster every 10 years. Shingrix recommended. Colonoscopy ordered. Follow-up the facilities plant engineer for breast exam and mammogram and Pap smear is a direct. We will see her back in 6 months with lab sooner if needed. Cerebellar ataxia 07/12/2019 Overview (10/18/2020): 03/2019 : Walking speech handwriting Dr Horne at [facility] Assessment & Plan (11/18/2021 6:54 PM MONITOR CAR OPERATOR): Continue follow-up with her neurologist as they direct. Assessment & Plan (04/30/2021 10:14 AM CDT): Follow-up with her neurologist as they direct. Assessment & Plan (10/21/2020 3:14 PM MONITOR CAR OPERATOR): Follow-up with her neurologist as they direct. Type 1 diabetes mellitus with hyperglycemia 03/30 Assessment & Plan (10/26/2024 1:30 PM MONITOR CAR OPERATOR): A1c is elevated to 9.1% This is worsening, not at goal with out correctional scale insulin Correctional insulin restarted Will attempt to obtain continuous glucose monitor to help with blood sugar monitoring Assessment & Plan (06/17/2019 8:57 PM CDT): Genetic testing is needed, and strongly recommended by ADA for persons with permanent diabetes. It is not clear whether her insurance will cover this, though it might change her therapy. Cognitive decline 03/01/2019 Overview (03/01/2019): Appears to have begun in the fall of 2018; has been progressive. Assessment & Plan (06/17/2019 8:55 PM CDT): I have referred the patient to neurology, but her [place] medicaid is not accepted here. Her sister will continue to try to find a neurologist who can see her. Assessment & Plan (03/01/2019 6:28 PM CDT): This appears to be a slowly progressive problem. The change in cognition seems to have started 5-8 months ago, and contributed to job loss and lack of judgement with regard to the sale of a home and car at extremely low prices. The etiology is unclear, but there does not appear to be related to an injury or acute illness. Work up would include neurology referral, labs and imaging. I am happy to start this process at any time. I advised Meghna's sister, Tanna Miranda, to check on COBRA insurance or Medicaid. Also, to check on free clinics. Meghna and her sister are interested in the evaluation, but have no means to pay for it currently. I also recommended that she be taken to an ED for any acute change or deterioration. Abnormal motor coordination 03/01/2019 Overview (03/01/2019): Began winter 2018 Assessment & Plan (06/17/2019 8:59 PM CDT): The MRI suggests spinal - cerebellar atrophy, which tends to be progressive. I am concerned that this will get worse. For now, continue to use the 4-pt cane, and progress to a walker as needed. Assessment & Plan (03/01/2019 6:25 PM CDT): Balance and coordination are impaired, which is new. Until a full evaluation can take place, I suggest that Meghna's sister get her a cane or walking sticks. Imaging and additional work-up are advised, but will have to be deferred until insurance issues are worked out. Compression fracture of thoracic vertebra 2017 Assessment & Plan (08/16/2018 1:47 PM CDT): Obtain results of DXA, consider HRT or other anti-resorptive rx Right bundle branch block 08/16/2018 Tendinitis of wrist 08/16/2018 Contusion of forehead 05/28/2018 Localized edema 07/16/2016 Carpal tunnel syndrome 06/11/2016 Hypertension associated with type 1 diabetes sasha litus 04/14/2016 Assessment & Plan (10/26/2024 1:27 PM MONITOR CAR OPERATOR): This is a chronic condition which is not at goal upon arrival to the office. At goal after rest. Goal is less than 140/90 Continue lisinopril, Lasix Encouraged to monitor weight and B/P at home. Assessment & Plan (12/30/2022 2:04 PM MONITOR CAR OPERATOR): This is a chronic condition which is at goal of less than 140/90 Personally reviewed labs. Continue lisinopril. Avoid caffeine, caffeine will raise blood pressure and excessive alcohol consumption. Monitor your weight and B/P. Encouraged to take medications as prescribed. Assessment & Plan (08/12/2022 2:10 PM CDT): This is a chronic condition which is at goal Goal is <140/90 Personally reviewed labs. Continue lisinopril. Avoid caffeine, caffeine will raise blood pressure and excessive alcohol consumption. Monitor your weight and B/P. Encouraged to take medications as prescribed. Assessment & Plan (05/08/2022 2:33 PM CDT): This is a chronic condition which is at goal Goal is <140/90 Personally reviewed labs. B/P today- 116/54 , currently on lisinopril 10mg daily. Avoid caffeine, caffeine will raise blood pressure and excessive alcohol consumption. Monitor your weight and B/P. Encouraged to take medications as prescribed. Assessment & Plan (02/04/2022 12:18 PM MONITOR CAR OPERATOR): This is a chronic condition which is at goal Goal is <140/90 Personally reviewed labs. B/P today- 120/64 , currently on lisinopril 10mg daily. Avoid caffeine, caffeine will raise blood pressure and excessive alcohol consumption. Monitor your weight and B/P. Encouraged to take medications as prescribed. Assessment & Plan (11/18/2021 6:54 PM MONITOR CAR OPERATOR): Well controlled on the current regimen. Avoidance of salt, proper body weight, and routine exercise recommended. Assessment & Plan (10/01/2021 3:09 PM CDT): This is a chronic condition which is at goal Goal is <140/90 Personally reviewed labs. B/P today- 112/52 , currently on lisinopril 10mg daily. Avoid caffeine, caffeine will raise blood pressure and excessive alcohol consumption. Monitor your weight and B/P. Encouraged to take medications as prescribed. Assessment & Plan (06/25/2021 2:31 PM CDT): This is a chronic condition which is at goal Goal is <140/90 Personally reviewed labs. B/P today- 120/60 , currently on lisinopril 10mg daily. Avoid caffeine, caffeine will raise blood pressure and excessive alcohol consumption. Monitor your weight and B/P. Encouraged to take medications as prescribed. Assessment & Plan (04/30/2021 10:14 AM CDT): Well controlled on the current regimen. Avoidance of salt, proper body weight, and routine exercise recommended. Assessment & Plan (03/26/2021 2:38 PM CDT): This is a chronic condition and is stable, controlled, at goal. Goal is <140/90. B/P today- 120/60 , currently on lisinopril 10mg daily. At goal blood pressure is <140/90 and as close to 120/80 as possible. Personally reviewed labs. Avoid caffeine, caffeine will raise blood pressure and excessive alcohol consumption. Assessment & Plan (10/21/2020 3:15 PM MONITOR CAR OPERATOR): Well controlled on the current regimen. Avoidance of salt, proper body weight, and routine exercise recommended. Hypercholesterolemia 04/14/2016 Assessment & Plan (05/29/2022 11:29 PM CDT): Well controlled on current therapy and will check a lipid panel and LFTs in 6 months. Assessment & Plan (11/18/2021 6:56 PM MONITOR CAR OPERATOR): Well controlled on current therapy and will check a lipid panel and LFTs in 6 months. Assessment & Plan (04/30/2021 10:14 AM CDT): She needs to be on statin therapy and will check a baseline metabolic panel today and call back for results. Start atorvastatin 20 mg at bedtime and check lipids and LFTs before next visit. Assessment & Plan (10/21/2020 3:15 PM MONITOR CAR OPERATOR): Check fasting lipid panel before next visit and consider statin therapy if no contraindication. Type 1 diabetes mellitus with diabetic polyneuro tami 02/07/2015 Assessment & Plan (10/26/2024 1:30 PM MONITOR CAR OPERATOR): This is a chronic condition which continues but stable Continue gabapentin Assessment & Plan (05/11/2023 4:49 PM CDT): This is a chronic condition which is worsening not at goal of less than 7%. Personally reviewed most recent A1c - Lab Results Component Value Date HGBA1C 8.5 05/11/2023 Personally reviewed POC blood sugar- at goal 80-180 Lab Results Component Value Date POCGLU 142 05/11/2023 Medication- Continue decrease Levemir 14 units in zm and 10 units is pm , Increase Humalog 8 units with correctional insulin for meals. 70-200- 0 correction 200-250- 2 units 251-300- 3 units 301-350- 4 units 351-400- 5 units 401-450- 6 units 451-450- or higher 7 units. Decrease fast acting Humalog to 4 units if blood sugar is less than 120 Hold humalog when patient is not eating. Letter sent to [facility]. Monitor blood sugar 4 times a day. Encouraged annual eye exam. last dilated eye exam was completed at [facility] This is a chronic condition which is improving and close to goal of less than 8% Personally reviewed A1c today-decreased to 8.1% Continue: Levemir 18 units in am and 10 units is pm , Increase Humalog 8 units with correctional insulin for meals. 70-200- 0 correction 200-250- 2 units 251-300- 3 units 301-350- 4 units 351-400- 5 units 401-450- 6 units 451-450- or higher 7 units. Hold fast acting Humalog if blood sugar is less than 120 or when patient is not eating. Monitor blood sugar 4x times a day. Encouraged annual eye exam. completed at [facility]. Monofilament foot exam-decreased protective senses. Treated with Gabapentin Labs completed at [facility]. B/P today- At goal blood pressure is <140/90 continue lisinopril 10mg daily. No history of macrovascular disease - CVA, PR. Monofilament foot exam completed. Decreased protective senses Treated with Gabapentin Personally reviewed CMP eGFR- ordered at [facility] Urine microalbumin/creatinine ratio - goal <30 not treated with ROSA/ARB B/P today- at goal of <140/90. Personally reviewed lipid panel. Goal of less than 70. Repeat lipid panel ordered. Continue atorvastatin Assessment & Plan (12/30/2022 2:02 PM MONITOR CAR OPERATOR): This is a chronic condition which is improving and close to goal of less than 8% Personally reviewed A1c today-decreased to 8.1% Continue: Levemir 18 units in am and 10 units is pm , Increase Humalog 8 units with correctional insulin for meals. 70-200- 0 correction 200-250- 2 units 251-300- 3 units 301-350- 4 units 351-400- 5 units 401-450- 6 units 451-450- or higher 7 units. Hold fast acting Humalog if blood sugar is less than 120 or when patient is not eating. Monitor blood sugar 4x times a day. Encouraged annual eye exam. completed at [facility]. Monofilament foot exam-decreased protective senses. Treated with Gabapentin [facility] B/P today- At goal blood pressure is <140/90 continue lisinopril 10mg daily. No history of macrovascular disease - CVA, PR. Assessment & Plan (08/12/2022 2:09 PM CDT): This is a chronic condition which is Personally reviewed A1c today-9.4% not at goal less than 8% Continue: Levemir 18 units in and increase 12 units is pm , Increase Humalog 8 units with correctional insulin for meals. 70-200- 0 correction 200-250- 2 units 251-300- 3 units 301-350- 4 units 351-400- 5 units 401-450- 6 units 451-450- or higher 7 units. Hold fast acting Humalog if blood sugar is less than 120 or when patient is not eating. Monitor blood sugar 4x times a day. Encouraged annual eye exam. completed at [facility]. Monofilament foot exam-decreased protective senses. Treated with Gabapentin [facility] B/P today- At goal blood pressure is <140/90 continue lisinopril 10mg daily. No history of macrovascular disease - CVA, PR. Assessment & Plan (05/08/2022 2:29 PM CDT): This is a chronic condition which is worsening and not at goal. Personally reviewed A1c today-9.8% - reported by patient. [facility] Worsening and not at goal less than 8% Continue: Basaglar 18 units in and and 10 units is pm , Admelog 5 units with correctional insulin for meals. States, the nursing assistants teacher has agreed for her to get her insulin pump. Will make [employer] referral. correction is 1:50. starting at 200. 70-200- 0 correction 200-250- 2 units 251-300- 3 units 301-350- 4 units 351-400- 5 units 401-450- 6 units 451-450- or higher 7 units. Hold fast acting admelog if blood sugar is less than 120 or when patient is not eating. Monitor blood sugar 4x times a day. Encouraged annual eye exam. completed at [facility]. Monofilament foot exam completed, decreased protective senses. Treated with Gabapentin Labs completed at [facility]. Labs requested for review. B/P today-continue on lisinopril 10mg daily. At goal blood pressure is <140/90 and as close to 120/80 as possible. No history of macrovascular disease - CVA, PR. Assessment & Plan (02/04/2022 12:17 PM MONITOR CAR OPERATOR): This is a chronic condition which is not at goal. Personally reviewed A1c today-9.1% not at goal less than 8% Continue: Basaglar 18 units in and and 10 units is pm , Admelog 5 units with correctional insulin for meals. correction is 1:50. starting at 200. 70-200- 0 correction 200-250- 2 units 251-300- 3 units 301-350- 4 units 351-400- 5 units 401-450- 6 units 451-450- or higher 7 units. Hold fast acting admelog if blood sugar is less than 120 or when patient is not eating. Monitor blood sugar 4x times a day. Encouraged annual eye exam. completed at [facility]. Monofilament foot exam completed, decreased protective senses. Treated with Gabapentin Labs completed at [facility]. Labs requested for review. B/P today- 120/64 , currently on lisinopril 10mg daily. At goal blood pressure is <140/90 and as close to 120/80 as possible. No history of macrovascular disease - CVA, PR. Assessment & Plan (10/01/2021 3:08 PM CDT): This is a chronic condition which is improving but not at goal. Personally reviewed A1c today-8.6% not at goal less than 8% Continue: Basaglar 18 units in and and 10 units is pm , Admelog 5 units with correctional insulin for meals. correction is 1:50. starting at 200. 70-200- 0 correction 200-250- 2 units 251-300- 3 units 301-350- 4 units 351-400- 5 units 401-450- 6 units 451-450- or higher 7 units. Hold fast acting admelog if blood sugar is less than 120 or when patient is not eating. Monitor blood sugar 4x times a day. Encouraged annual eye exam. completed at [facility]. Monofilament foot exam completed, decreased protective senses. Treated with Gabapentin Labs completed at [facility]. Labs requested for review. B/P today- 112/52 , currently on lisinopril 10mg daily. At goal blood pressure is <140/90 and as close to 120/80 as possible. No history of macrovascular disease - CVA, PR. Assessment & Plan (06/25/2021 2:30 PM CDT): This is a chronic condition which is worsening and not at goal. Personally reviewed A1c today- 9.2% up from 8.3, Since changes in her insulin regimen after her last hospital stay. not at goal less than 8% Return to previous insulin regimen. Continue: Basaglar 18 units in and and 10 units is pm , Admelog 5 units with correctional insulin for meals. correction is 1:50. starting at 200. 70-200- 0 correction 200-250- 2 units 251-300- 3 units 301-350- 4 units 351-400- 5 units 401-450- 6 units 451-450- or higher 7 units. Hold fast acting admelog if blood sugar is less than 120 or when patient is not eating. She tells me many times the nurses will hold her insulin and this causes her to go high later, the nursing staff Has been asked to not hold Basaglar insulin, but they do anyway. Monitor blood sugar 4x times a day. Encouraged annual eye exam. Monofilament foot exam completed, decreased protective senses. Treated with Gabapentin Labs completed at [facility]. Labs requested for review. B/P today- 120/60 , currently on lisinopril 10mg daily. At goal blood pressure is <140/90 and as close to 120/80 as possible. No history of macrovascular disease - CVA, PR. Assessment & Plan (03/26/2021 2:36 PM CDT): This is a chronic condition which is improving but not at goal. Personally reviewed A1c today- 8.3, down from 9.0 (09/11/20) not at goal less than 8% Personally reviewed blood sugar 103, At goal 80-180 Continue: Basaglar 18 units in and and 10 units is pm , Admelog 5 units with correctional insulin for meals. correction is 1:50. She tells me many times the nurses will hold her insulin and this causes her to go high later. Medication- Previously ordered daily am dose of Basaglar 18 units daily in am only. However, the House doctor added the Basaglar 10 units in the pm. I asked the nursing staff to not hold Basaglar insulin, but they do anyway. Monitor blood sugar 4x times a day. Encouraged annual eye exam. Monofilament foot exam completed, decreased protective senses. Treated with Gabapentin Labs completed at [facility]. Labs requested for review. B/P today- 120/60 , currently on lisinopril 10mg daily. At goal blood pressure is <140/90 and as close to 120/80 as possible. No history of macrovascular disease - CVA, PR. Assessment & Plan (12/20/2020 2:29 PM MONITOR CAR OPERATOR): This is a chronic condition which is worsening uncontrolled with hyperglycemia, not at goal. Personally reviewed A1c today- 9.0 increased from 09/11/20 goal less than 8% Personally reviewed blood sugar 89 goal 80-180 According to the charts provided by [facility], the total daily dose of insulin average is 35 units daily for the last 7 days. This correlates with a 0.5units/kg regimen. Current insulin is Basaglar 12 units in and and 10 units is pm with correctional insulin for meals. This is a basal heavy regimen which leads to hypoglycemia. She tells me many times the nurses will hold her insulin and this causes her to go high later. Medication- change to Basaglar 18 units daily in am. Do not hold Basaglar insulin. Admelog 5 Units- 15 minutes prior to meals at breakfast, lunch and dinner. Hold insulin if blood sugar is less than 120 or patient not eating the meal. Correctional insulin at each meal and at bedtime as follows: Decrease correctional dose of insulin by 50% at bedtime if blood sugar is greater than 175 71 - 150 NO CORRECTIONAL INSULIN NEEDED 151 - 175 = 1 UNIT 176 - 200 = 2 UNITS 200 - 225 = 3 UNITS 226 - 250 = 4 UNITS 251 - 275 = 5 UNITS 276 - 300 = 6 UNITS 301 - 325 = 7 UNITS 326 - 350 = 8 UNITS 351 - 375 = 9 UNITS 376 - 400 =10 UNITS 401- 425 =11 units 426- 450 = 12 units 451- 475 = 13 units 476- 500 or higher = 14 units Monitor blood sugar 4x times a day. Encouraged annual eye exam. Monofilament foot exam completed, loss of protective senses. Treated with Gabapentin Labs completed at [facility]. Unable to review. B/P today- 132/62 , currently on lisinopril 10mg daily. At goal blood pressure is <140/90 and as close to 120/80 as possible. No history of macrovascular disease - CVA, PR. Assessment & Plan (10/21/2020 3:14 PM MONITOR CAR OPERATOR): Patient is instructed to follow-up with her component prep operator today for management of her erratic blood sugars. Assessment & Plan (09/11/2020 5:21 PM CDT): This is a chronic condition which is improving, but not at goal. With her history of severe hypoglycemia, an A!C of 8.3 is exceptable Labs reviewed. A1c today-8.3 - down from 9.2 (06/04/2020) Medication- Continue Basaglar 12 units twice daily every 12 hrs. Admelog per correctional scale 0-150- 0 units 151-200- 2 units 201-250- 4 units 251-300- 6 units 301-350- 8 units 351-400- 10 units 401-450- 12 units >450- call MD Monitor blood sugar 4 times a day. Encouraged a annual eye exam Monofilament foot exam completed, protective senses intact but diminished on Gapapentin Urine microalbumin/creatinine ratio - needed. ordered currently lisinopril 10 mg (12/28/2019) Kidney function eGRF-52, BUN- 29, creatinine- 1.1 BP today- 120/70 , currently on lisinopril 10mg LDL - needed, currently not on a statin No history of macrovascular disease - CVA, PR. Assessment & Plan (06/17/2019 8:54 PM CDT): Glucoses are running too high overall, however insulin requirement remains low. Change Lantus to 4 units in the morning and 2 units in the evening. Continue with 2 - 4 units before meals depending on glucose (2 if <150, 3 if 150 - 200, 4 if >200 mg/dl). I will order a Dexcom CGM, which will help to clarify her insulin needs quite a lot. Assessment & Plan (03/01/2019 6:29 PM CDT): Diabetes is worsening. Reminded to bring in blood sugar diary at next visit. Discussed ways to avoid symptomatic hypoglycemia. Plan will be: 14 units of Tresiba and 3-4 units of Humalog or equivalent prior to meals. Check 4X daily and as needed for symptoms of high or low glucose. Samples of Tresiba and short acting insulin were provided. Diabetes will be reassessed in 3 months. Assessment & Plan (08/16/2018 1:48 PM CDT): Diabetes is worsening. A1c is higher and diabetes control is complicated by severe hypoglycemia. Reminded to bring in blood sugar diary at next visit. Discussed ways to avoid symptomatic hypoglycemia. Reminded to get yearly retinal exam. Medication changes per orders. Diabetes will be reassessed in 6 months. I will reorder a CGM for safety, try for prior-authorization. Aneurysm 05/30/2014 Vitamin D deficiency disease 10/04/2013 Assessment & Plan (11/18/2021 6:54 PM MONITOR CAR OPERATOR): Continue current supplementation and check level in 1 year. Assessment & Plan (04/30/2021 10:14 AM CDT): Continue supplementation and check level before next visit. Assessment & Plan (10/21/2020 3:14 PM MONITOR CAR OPERATOR): Continue current supplementation and check level in 1 year. Assessment & Plan (08/16/2018 1:47 PM CDT): Pt takes vitamin D, encouraged to continue Immunizations Immunization Administration Dates Next Due Influenza, Quadrivalent, Spl it, Preservative Free, Intramuscular 10/18/2020 Influenza, Trivalent, IM (MDV) 09/16/2017 Influenza, Trivalent, Preser vative Free, Intramuscular 08/27/2009 Influenza, Unspecified 10/14/2021,2018(Deferred: Patient Refused) Pfizer SARS-CoV-2 Monovalent Vaccination (12+ Yrs) PURPLE 12/28/2020,12/07/2020 Pneumococcal Polysaccharide PPV23 03/17/2018, Tdap 03/17/2018 Social History Tobacco Use Types Packs/Day Years Used Date Smoking Tobacco: Never Tobacco Cessation:Counseling Given: Not Answered PHQ-2 Answer Date Recorded PHQ-2 Total Score (If total score is 3 or more points, staff should administer the PHQ-9) 0 05/13/2022 Comments No Sex and Gender Information Value Date Recorded Sex Assigned at Not on file Legal Sex Female 2:05 PM MONITOR CAR OPERATOR Gender Identity Not on file Sexual Orientation Not on file Last Filed Vital Signs Vital Sign Reading Time Taken Comments Blood Pressure 134/78 10/26/2024 1:12 PM MONITOR CAR OPERATOR Pulse 70 05/13/2022 1:43 PM CDT Temperature - - Respiratory Rate 16 05/13/2022 1:43 PM CDT Oxygen Saturation 99% 04/30/2021 9:50 AM CDT Inhaled Oxygen Concentration - - Weight 83.4 kg (183 lb 12.8 oz) 10/26/2024 9:05 AM MONITOR CAR OPERATOR Height 154.9 cm (5' 1 ) 10/26/2024 9:05 AM MONITOR CAR OPERATOR Body Mass Index 34.73 10/26/2024 9:05 AM MONITOR CAR OPERATOR Plan of Treatment Not on file Procedures Procedure Name Priority Date/Time Associated Diagnosis Comments EGFR Routine 10/26/2024 9:48 AM MONITOR CAR OPERATOR Type 1 diabetes mellitus with hypoglycemia and without coma (HCC) LIPID PANEL Routine 10/26/2024 9:48 AM MONITOR CAR OPERATOR Type 1 diabetes mellitus with hypoglycemia and without coma (HCC) ALBUMIN CREATININE RATIO, URINE Routine 10/26/2024 9:48 AM MONITOR CAR OPERATOR Type 1 diabetes mellitus with hypoglycemia and without coma (HCC) POCT HEMOGLOBIN A1C Routine 10/26/2024 9 :08 AM MONITOR CAR OPERATOR Type 1 diabetes mellitus with hypoglycemia and without coma (HCC) DIABETIC EYE EXAM Routine 05/13/2021 from Last 3 Months or Most Recently Relevant to Health Maintenance Results * eGFR (10/26/2024 9:48 AM MONITOR CAR OPERATOR) eGFR 88 >=60 mL/min/1. 73 m2 Comment: Interpretive Data Reference Interval Normal >/= 90 mL/min/1.73m2 Mildly decreased* 60 - 89 mL/min/1.73m2 Mildly to moderately decreased 45 - 59 mL/min/1.73m2 Moderately to severely decreased 30 - 44 mL/min/1.73m2 Severely decreased 15 - 29 mL/min/1.73m2 Kidney Failure < 15 mL/min/1.73m2 *Relative to young adult level Estimated glomerular filtration rate is determined by the 2020 CKD-EPI equation recommended by the National Kidney Foundation (A Unifying Approach to GFR Estimation: Recommendations of the NKF-ASK Task Force on Reassessing the Inclusion of Race in Diagnosing Kidney Disease, JASN 2020). The CKD-EPI equation should not be used for patients with unstable renal function and has not been validated in children and those over 70. Current interpretive data was last reviewed 2021. Blood 10/26/2024 9:48 AM MONITOR CAR OPERATOR 10/26/2024 8:08 PM MONITOR CAR OPERATOR us Kasia Quesada NP LAB BLOOD ORDERABLES Final Resu lt [facility] [id number] Department [place] [address] * Albumin Creatinine Ratio, Urine (10/26/2024 9:48 AM MONITOR CAR OPERATOR) Albumin Ur <12.0 mg/L Comment: Interpretive Data No reference range established. Current interpretive data was last revised 2019. Creatinine Ur 23.5 mg/dL [facility] GRANDA Comment: Interpretive Data No reference range established. Current interpretive data was last revised 2019. Albumin Creatinine Ratio, Ur See Comment 1 - 29 [facility] GRANDA Comment:Unable to calculate Urine 10/26/2024 9:48 AM MONITOR CAR OPERATOR 10/26/2024 6:31 PM MONITOR CAR OPERATOR us Kasia Quesada NP LAB URINE ORDERABLES Final Resu lt [facility] [id number] Department [place] [address] * Lipid panel (10/26/2024 9:48 AM MONITOR CAR OPERATOR) Cholesterol 183 30 - 199 mg/dL Comment: Interpretive Data Ages < or = 19 years Acceptable: <170 mg/dL Borderline high: 170-199 mg/dL High: >or= 200 mg/dL Ages > or = 20 years Desirable: <200 mg/dL Borderline high: 200-239 mg/dL High: >or= 240 mg/dL Literature References: 1. Expert Panel on Integrated Guidelines for Cardiovascular Health and Risk Reduction in Children and Adolescents. Pediatrics 2011;128:S213 2. NCEP Expert Panel. Circulation 2004;110:227 Current Interpretive Data was last revised on 2018. Triglycerides 129 <=149 mg/dL [facility] GRANDA Comment: Interpretive Data Ages < or = 9 years Acceptable: <75 mg/dL Borderline high: 75-99 mg/dL High: >or= 100 mg/dL Ages 10 to 20 years Acceptable: <90 mg/dL Borderline high: 90-129 mg/dL High: >or= 130 mg/dL Ages > or = 20 years Desirable: <150 mg/dL Borderline high: 150-199 mg/dL High: 200-499 mg/dL Very high: >or= 499 mg/dL Literature References: 1. Expert Panel on Integrated Guidelines for Cardiovascular Health and Risk Reduction in Children and Adolescents. Pediatrics 2011;128:S213 2. NCEP Expert Panel. Circulation 2004;110:227 Current Interpretive Data was last revised on 2018. HDL 71 >=40 mg/dL [facility] GRANDA Comment: Interpretive Data Ages < or = 19 years Acceptable: >45 mg/dL Borderline low: 40-45 mg/dL Low: <40 mg/dL Ages > or = 20 years Desirable: >or= 60 mg/dL Low: <40 mg/dL Literature References: 1. Expert Panel on Integrated Guidelines for Cardiovascular Health and Risk Reduction in Children and Adolescents. Pediatrics 2011;128:S213 2. NCEP Expert Panel. Circulation 2004;110:227 Current Interpretive Data was last revised on 2018. LDL, calculated 90 <=129 mg/dL [facility] GRANDA Comment: Interpretive Data Ages < or = 19 years Acceptable: <110 mg/dL Borderline high: 110-129 mg/dL High: >or= 130 mg/dL Ages > or = 20 years Optimal: <100 mg/dL Near optimal: 100-129 mg/dL Borderline high: 130-159 mg/dL High: >160 mg/dL Calculated using the Lee LDL-C estimating equation. This equation was implemented on 2024. Prior to this date LDL-C was estimated using the Friedewald equation. Literature References: 1. Expert Panel on Integrated Guidelines for Cardiovascular Health and Risk Reduction in Children and Adolescents. Pediatrics 2011;128:S213 2. NCEP Expert Panel. Circulation 2004;110:227 3. Lee Song et al. ORAL Cardiol. 2020 March 30;5(5):540-548. doi: [email or web address] Current Interpretive Data was last revised on 2024. Non-HDL Cholesterol 112 mg/dL JOSE[facility] Comment: Interpretive Data Ages < or = 19 years Acceptable: <120 mg/dL Borderline high: 120-144 mg/dL High: >145 mg/dL Ages > or = 20 years When triglycerides are >200 mg/dL, Non-HDL cholesterol is a secondary target of therapy with treatment goals that are 30 mg/dL greater than the LDL cholesterol target. Literature References: 1. Expert Panel on Integrated Guidelines for Cardiovascular Health and Risk Reduction in Children and Adolescents. Pediatrics 2011;128:S213 2. NCEP Expert Panel. Circulation 2004;110:227 Current Interpretive Data was last revised on 2018. Chol/HDL ratio 3 JOSEPH Blood 10/26/2024 9:48 AM MONITOR CAR OPERATOR 10/26/2024 6:31 PM MONITOR CAR OPERATOR Narrative [facility] GRANDA - 10/26/2024 8:30 PM MONITOR CAR OPERATOR These lab test should be done fasting. This means do not eat or drink for at least 12 hours prior to getting your blood drawn. Kasia Quesada NP LAB BLOOD ORDERABLES Final Resu lt [facility] [id number] Department [place] [address] * (ABNORMAL) POCT hemoglobin A1c (10/26/2024 9:08 AM MONITOR CAR OPERATOR) Hemoglobin A1C, POC 9.1 4.0 - 5.6 % Blood 10/26/2024 9:08 AM MONITOR CAR OPERATOR Kasia Quesada NP POINT OF CARE TEST ORDERABLES F inal Result * Diabetic Eye Exam (05/13/2021) Historical Provider MD HEALTH MAINTENANCE Final Result from Last 3 Months or Most Recently Relevant to Health Maintenance Insurance [facility] MEDICARE MEDICARE Care Teams Solid Waste Division Supervisor Relationship Specialty Start Date End Date Shiraz Magana MD [address] [place] [address] PCP - General Internal Medicine 10/26/24
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
--- OUTSIDE RECORDS SUMMARY | 2025-03-24 00:51 | XMS_ITS | Data Portability ---
Author Organization [place] - [facility] Atlas Powered, Main Office Address [address] [place] [address] Assessment Encounter Date Assessment Date Assessment LastModified by Organization Details LastModified Time 02/15/2025 02/15/2025 This note is dictated and transcribed by [employer]. Cassandra Developer variances may occur. Despite proofreading, typographical errors may occur. Occasional wrong-word or 'jgfek-u-rmvo' substitutions may have occurred due to the inherent limitations of voice recording. Read the chart carefully and recognize, using context, where substitutions have occurred. Not available 02/15/2025 15:57:19 03/02/2025 03/02/2025 This note is dictated and transcribed by [employer]. Cassandra Developer variances may occur. Despite proofreading, typographical errors may occur. Occasional wrong-word or 'pahqk-z-vgcv' substitutions may have occurred due to the inherent limitations of voice recording. Read the chart carefully and recognize, using context, where substitutions have occurred. Not available 03/02/2025 14:33:46 Plan of Treatment Reminders Order Date Submit Date Provider Last Modified By Organization Details Last Modified Time Details Appointments Establish ed Patient 15 2024 01:45P Nohemi Dunn DPM Not available Not available Not available Lab None recorded. Referral None recorded. Procedures None recorded. Surgeries None recorded. Imaging XR, foot, 3 or more view - podiatry to read 2024 025 [email or web address] Not available 03/16/2025 08:22:37 XR, foot 2024 025 [email or web address] [facility], [address] [place], [address], 03/02/2025 16:15:29 XR, foot 2024 025 [email or web address] [facility], [address] [facility], [address], 02/15/2025 18:18:05 Medication Orders None recorded. Patient TargetsNo targets recorded. Patient InstructionsNo instructions recorded. Reason for Referral None Reported. Results Created Date Observation Date Name Description Value Unit Range Abnormal Flag Note LastModifiedBy Organization Detail LastModifiedTime 09/02/2008/28/2021 XR, knee, 4 or more view No observ ation record ed. [id number] Not Available 01/28/2023 23:59:50 09/09/20 XR, knee No observ ation record ed. [id number] Not Available 01/28/2023 23:59:50 09/10/20 21 MRI, knee, w/o contr ast [facility] [address] [facility] [place], [place] [address] [phone] Patien t Name: JUDY ENGLISH Access ion #: [id number] Sex: F : 1969 Locati on: IND Attend ing Physic gasper: Jarrett hicks Physic gasper: CHIN GIL Exam Date: 2020 8:19 AM Exam Name: MRI KNEE RT WO Admitt ing Diagno sis(es ): RADIOL OGY REPORT - FINAL EXAM: MRI KNEE RT WO HISTOR Y: pain 51-yea r-old female with right knee pain and swelli ng, no known injury . COMPAR PAU: Radiog raphs of the right knee dated 2020. TECHNI QUE: Multip lanar multis equenc e noncon trast MR images of the right knee were perfor med. FINDIN GS: There is a mildly displa justin fractu re of the nonprofit fundraiser ior centra l tibial platea u with associ ated bone marrow edema of the tibial platea u and tibial metaph ysis. No signif icant step-o ff is identi fied about the articu lar surfac es. There is a near comple te tear of the PCL at the tibial attach ment. The ACL, PCL, MCL, LCL, topher ceps tendon , patell ar tendon , and poplit eus Page 1 of 3 [facility] mariama Name: JUDY ENGLISH Access ion #: [id number] Sex: F : 1969 Exam Date: 2020 8:19 AM Exam Name: MRI KNEE RT WO Admitt ing Diagno sis(es ): tendon are intact . There is edema along the anteri or margin of the MCL which may indica te a partia l tear of the medial retina culum. There is a partia l tear of the joint capsul e latera lly (image s 2-11, series 3). There is mild edema of the distal aspect of the vastus medial is. The medial and latera l menisc i are intact . There is 7 mm latera l patell ar sublux ation (image 7, series 3) with patchy bone marrow edema of the infero medial aspect of the patell a (image 11, series 9). There is mild thinni ng of the articu lar cartil age of the medial compar tment. No signif icant chondr omalac ia of the latera l or patell ofemor al compar tments . There is a modera te to large joint effusi on, with fusifo rm materi al in the suprap atella r pouch measur ing 3.3 cm transv erse (image s 2-6, series 3; image 15, series 12). There is fluid anteri or to the patell a and patell ar tendon . No poplit eal fossa cyst. IMPRES STEPHENIE: 1. Mildly displa justin fractu re of the nonprofit fundraiser ior centra l tibial platea u withou t signif icant articu lar surfac e step-o ff. 2. Bone marrow edema of the infero medial aspect of the patell a is sugges tive of transi ent patell ar disloc ation. There is associ ated partia l tear of the medial retina culum and 7 mm latera l patell ar sublux ation. 3. The PCL is near comple tely torn near the tibial attach ment. Edema along the anteri or margin of the MCL is likely relate d to partia l tear of the medial retina culum. The MCL, LCL, and ACL are otherw ise intact . 4. Both menisc i are intact . 5. Low-gr ashish muscul ar tear of the distal aspect of the vastus medial is, not comple tely imaged here. 6. Fluid anteri or to the patell a and patell ar tendon may be due to prepat ellar bursit is and/or contus ion. 7. Low-gr ashish chondr omalac ia of the medial compar tment. 8. Modera te to large joint effusi on with fusifo rm materi al in the Page 2 of 3 [facility] Name: JUDY ENGLISH Access ion #: [id number] Sex: F : 1969 Exam Date: 2020 8:19 AM Exam Name: MRI KNEE RT WO Admitt ing Diagno sis(es ): suprap atella r pouch which may repres ent coagul ated blood produc ts. Create d and electr onical ly signed by: Inderjit chandra MD Signed Date: 2020 12:38 PM (CT) Dictat ed by: Inderjit chandra MD DD: 2020 12:38 PM (CT) DT: 2020 12:38 PM (CT) Page 3 of 3 MIGRATION. [facility] ([facility]) [address] [place], [address], 01/28/2023 23:59:50 09/11/20 21 09/10/2021 MRI, knee, w/o contr ast No observ ation record ed. MIGRATION. [facility] [address], [place], [address], 01/28/2023 23:59:50 09/26/20 21 XR, knee, 3 view No observ ation record ed. MIGRATION. [facility] [place] [address], [place], [address], 01/28/2023 23:59:50 10/07/20 21 MRI, knee, w/o contr ast [facility] [address], [place] [address] Victoriano t Name: JUDY ENGLISH Access ion #: [id number] Sex: F : 1969 Locati on: IND Attend ing Physic gasper: Jarrett hicks Physic gasper: CHIN GIL Exam Date: 2020 8:19 AM Exam Name: MRI KNEE RT WO Admitt ing Diagno sis(es ): RADIOL OGY REPORT - FINAL EXAM: MRI KNEE RT WO HISTOR Y: pain 51-yea r-old female with right knee pain and swelli ng, no known injury . COMPAR PAU: Radiog raphs of the right knee dated 2020. TECHNI QUE: Multip lanar multis equenc e noncon trast MR images of the right knee were perfor med. FINDIN GS: There is a mildly displa justin fractu re of the nonprofit fundraiser ior centra l tibial platea u with associ ated bone marrow edema of the tibial platea u and tibial metaph ysis. No signif icant step-o ff is identi fied about the articu lar surfac es. There is a near comple te tear of the PCL at the tibial attach ment. The ACL, PCL, MCL, LCL, topher ceps tendon , patell ar tendon , and poplit eus Page 1 of 3 [facility] Victoriano t Name: JUDY ENGLISH Access ion #: [id number] Sex: F : 1969 Exam Date: 2020 8:19 AM Exam Name: MRI KNEE RT WO Admitt ing Diagno sis(es ): tendon are intact . There is edema along the anteri or margin of the MCL which may indica te a partia l tear of the medial retina culum. There is a partia l tear of the joint capsul e latera lly (image s 2-11, series 3). There is mild edema of the distal aspect of the vastus medial is. The medial and latera l menisc i are intact . There is 7 mm latera l patell ar sublux ation (image 7, series 3) with patchy bone marrow edema of the infero medial aspect of the patell a (image 11, series 9). There is mild thinni ng of the articu lar cartil age of the medial compar tment. No signif icant chondr omalac ia of the latera l or patell ofemor al compar tments . There is a modera te to large joint effusi on, with fusifo rm materi al in the suprap atella r pouch measur ing 3.3 cm transv erse (image s 2-6, series 3; image 15, series 12). There is fluid anteri or to the patell a and patell ar tendon . No poplit eal fossa cyst. IMPRES STEPHENIE: 1. Mildly displa justin fractu re of the nonprofit fundraiser ior centra l tibial platea u withou t signif icant articu lar surfac e step-o ff. 2. Bone marrow edema of the infero medial aspect of the patell a is sugges tive of transi ent patell ar disloc ation. There is associ ated partia l tear of the medial retina culum and 7 mm latera l patell ar sublux ation. 3. The PCL is near comple tely torn near the tibial attach ment. Edema along the anteri or margin of the MCL is likely relate d to partia l tear of the medial retina culum. The MCL, LCL, and ACL are otherw ise intact . 4. Both menisc i are intact . 5. Low-gr ashish muscul ar tear of the distal aspect of the vastus medial is, not comple tely imaged here. 6. Fluid anteri or to the patell a and patell ar tendon may be due to prepat ellar bursit is and/or contus ion. 7. Low-gr ashihs chondr omalac ia of the medial compar tment. 8. Modera te to large joint effusi on with fusifo rm materi al in the Page 2 of 3 [facility] Name: JUDY ENGLISH Access ion #: [id number] Sex: F : 1969 Exam Date: 2020 8:19 AM Exam Name: MRI KNEE RT WO Admitt ing Diagno sis(es ): suprap atella r pouch which may repres ent coagul ated blood produc ts. Create d and electr onical ly signed by: Inderjit chandra MD Signed Date: 2020 12:38 PM (CT) Dictat ed by: Inderjit chandra MD DD: 2020 12:38 PM (CT) DT: 2020 12:38 PM (CT) Page 3 of 3 [id number] [facility] ([facility]) [address] [place], [address], 01/28/2023 23:59:50 10/22/20 21 XR, knee No observ ation record ed. [id number] [facility] [place] [address], [place], [address], 01/28/2023 23:59:50 12/10/19 22 XR, knee, 3 view No observ ation record ed. [id number] [facility] [place] [address], [place], [address], 01/28/2023 23:59:50 01/23/20 25 01/22/2025 CT, head + brain , w/o contr ast No observ ation record ed. [email or web address] [facility] [address] [place], [address], 01/23/2025 08:41:48 02/16/20 25 XR, foot No observ ation record ed. [email or web address] [facility] [address] [place], [address], 02/15/2025 17:24:11 03/02/20 25 XR, foot No observ ation record ed. [email or web address] [facility] [address] [place], [address], 03/02/2025 15:06:25 Result Notes None recorded. Problems Name Problem SNOMED Code Status Onset Date Resolution Date Notes Provider Name and Address Organization Details Recorded Time Pain in left foot [id number] 07 Active 2024 Luis M Dunn DPM [address] [facility] [address], [place], [address], [employer] 15:55:03 Closed fracture of metatarsal bone 09183961 Active 2024 Luis M Dunn DPM [address] [facility], [facility] [address], [place], [address], [employer] 17:22:08 Problem Notes None recorded. Procedures Surgical History Date Name Laterality Status Provider Name and Address Organization Details Recorded Time Carpal tunnel completed Not Available [facility] 01/28/2023 23:56:24 discectomy of spine completed Not Available [facility] 01/28/2023 23:56:24 Imaging Results Imaging Date Name Status LastModified by Organiz ation Details LastModified Time 08/28/2021 XR, knee, 4 or more view completed [id number] Information not available 01/28/2023 23:59:50 09/09/2021 XR, knee completed [id number] Information not available 01/28/2023 23:59:50 09/10/2021 MRI, knee, w/o contrast completed [id number] [facility] [address], [place], [address], 01/28/2023 23:59:50 09/10/2021 MRI, knee, w/o contrast completed [id number] [facility] ([facility]) [address] [place], [address], 01/28/2023 23:59:50 09/26/2021 XR, knee, 3 view completed [id number] [facility] [place] [address] [facility] [address], [place], [address], 01/28/2023 23:59:50 10/07/2021 MRI, knee, w/o contrast completed [id number] [facility] ([facility]) [address] [place], [address], 01/28/2023 23:59:50 10/22/2021 XR, knee completed [id number] [facility] [place] [address] [facility] [address], [place], [address], 01/28/2023 23:59:50 12/10/2021 XR, knee, 3 view completed [id number] [facility] [place] [address] [facility] [address], [place], [address], 01/28/2023 23:59:50 01/22/2025 CT, head + brain, w/o contrast completed [email or web address] [facility] [address] [place], [address], 01/23/2025 08:41:48 02/15/2025 XR, foot completed [email or web address] [facility] [address] [place], [address], 02/15/2025 17:24:11 03/02/2025 XR, foot completed [email or web address] [facility] [address] [place], [address], 03/02/2025 15:06:25 Procedure Notes None recorded. Medical Equipment None Reported. Allergies Allergen ID Allergen Name Allergen Category Reaction Reaction Severity Criticality Documentation Date Start Date Code Code System Note Provider Name and Address Organization Details Recorded Time 26254 Substance with sulfonami de structure and antibacte rial mechanism of action (substanc e) medicatio n other Not available Not available 01/28/2023 63776 8003 SNOMED Const ipati on Not Available [facility] 3 23:59:33 97532 Product containin g penicilli n (product) medicatio n rash Not available Not available 01/28/2023 31200 8001 SNOMED Not Available [facility] 3 23:59:33 Medications Name Sig Start Date Stop Date Status Note LastModified by Organization Details LastModified Time furosemide 40 mg tablet active Not Available Not Available Not Available atorvastati n 20 mg tablet TAKE 1 TABLET BY MOUTH ONCE DAILY active Not Available Not Available No t Available Claritin 10 mg tablet Take 1 tablet every day by oral route. 2020 active Not Available Not Available Not Avai lable lisinopril 10 mg tablet active Not Available Not Available Not Available furosemide 20 mg tablet Take 1 tablet every day by oral route. 2020 active Not Available Not Available Not Avai lable gabapentin 100 mg capsule active Not Available Not Available Not Available Prim 5 mg-325 mg tablet Take 1 tablet every 6 hours by oral route. 02/15 completed Not Available Not Available Not Available fluticasone propionate 50 mcg/actuati on nasal spray,suspe nsion active Not Available Not Available Not Available Sudafed 30 mg tablet Take 2 tablets every 4 hours by oral route. 02/15 completed Not Available Not Available Not Available insulin lispro (U-100) 100 unit/mL subcutaneou s pen active Not Available Not Available Not Available insulin aspar prot-insuli n aspart 100 unit/mL (70-30) subcutaneou s pen Inject by subcutane ous route. 2020 active Not Available Not Available Not Avai lable nitrofurant oin monohydrate /macrocryst als 100 mg capsule active Not Available Not Available Not Available BD Ultra-Fine Mini Pen Needle 31 gauge x 3/16 USE 1 PEN NEEDLE SIX TIMES DAILY active Not Available Not Available No t Available gabapentin 02/15 completed Not Available Not Available Not Available Eduarda Anderson U-100 Insulin 100 unit/mL (3 mL) subcutaneou s active Not Available Not Available Not Available Admelog U-100 Insulin lispro 2020 active Not Available Not Available Not Avai lable DropSafe Pen Needle 31 gauge x 1/4 active Not Available Not Available Not Available Easy Touch Safety Pen Needle 30 gauge x /16 active Not Available Not Available Not Available aspirin 81 mg capsule Take by oral route. 2020 active Not Available Not Available Not Avai lable Vitals Date Recorded Body mass index (BMI) Body height Body weight Provider Name and Address Organization Details Last Updated DateTime 09/26/2021 31.2 kg/m2 154.94 cm 52685.74 g Not Available [facility] 01/28/2023 23:57:06 Date Recorded Body mass index (BMI) Body height Body weight Provider Name and Address Organization Details Last Updated DateTime 10/22/2021 31.6 kg/m2 154.94 cm 97662.93 g Not Available [facility] 01/28/2023 23:57:06 Date Recorded Body height Provider Name an d Address Organization Details Last Updated DateTime 12/10/2021 154.94 cm Not Available [facility] 23:57:05 Date Recorded Heart rate Respiratory rate Oxygen saturation Oxygen saturation in Arterial blood by Pulse oximetry Systolic blood pressure Diastolic blood pressure Provider Name and Address Organization Details Last Updated DateTime 5 87 /min 14 /min 98 % 98 % 97 mm[Hg] 52 mm[Hg] Anushka Mclaughlin [facility] [employer] 5 15:58:59 Date Recorded Heart rate Respiratory rate Body temperature Oxygen saturation Oxygen saturation in Arterial blood by Pulse oximetry Systolic blood pressure Diastolic blood pressure Provider Name and Address Organization Details Last Updated DateTime 5 78 /min 16 /min 98.6 [degF] 99 % 99 % 156 mm[Hg] 83 mm[Hg] Pat Rivera [facility] [employer] 5 14:59:49 Social History Question Answer Notes LastModified by Organizat ion Details LastModified Time Tobacco Smoking Status Former Smoker Pat sotomayor [facility] 02/15/2025 16:49:21 What Is Your Level Of Alcohol Consumption? None [id number] Information not available 01/28/2023 In The 14 Days Before Symptom Onset, Have You Had Close Contact With A Laboratory-confir med COVID-19 While That Case Was Ill? No Information not available 02/15/2025 In The 14 Days Before Symptom Onset, Have You Had Close Contact With A Person Who Is Under Investigation For COVID-19 While That Person Was Ill? No Information not available 02/15/2025 Are You Currently Employed? No Information not available 02/15/2025 What Type Of Diet Are You Following? DIABETIC Information not available 02/15/2025 What Is The Highest Grade Or Level Of School You Have Completed Or The Highest Degree You Have Received? [id number] Information not available 02/15/2025 When Did You Quit Smoking? 16+yearssinmony amanda Information not available 02/15/2025 Are There Any Guns Present In Your Home? No Information not available 02/15/2025 Where Do You Live? [facility] Information not available 02/15/2025 Are You Following A Low Salt Diet? No Information not available 02/15/2025 What Is Your Current Pack Years? 10packyears Information not available 02/15/2025 What Is Your Relationship Status? Information not available 02/15/2025 Do You Use Your Seat Belt Or Car Seat Routinely? Yes Information not available 02/15/2025 Do You Have Smoke And Carbon Monoxide Detectors In Your Home? Yes Information not available 02/15/2025 At What Age Did You Start Smoking Tobacco? 10 Information not available 02/15/2025 Are You Passively Exposed To Smoke? No Information no t available 02/15/2025 How Much Tobacco Do You Smoke? No Information not available 02/15/2025 Do You Feel Stressed (tense, Restless, Nervous, Or Anxious, Or Unable To Sleep At Night)? [id number] Information not available 02/15/2025 Do You Use Any Illicit Or Recreational Drugs? No Information not available 02/15/2025 Do You Use Sunscreen Routinely? No Information not available 02/15/2025 Has Tobacco Cessation Counseling Been Provided? No Information not available 02/15/2025 How Many Years Have You Smoked Tobacco? 1 Quit 30 Years Ago Information not available 02/15/2025 Have You Recently Traveled Abroad? No Information not available 02/15/2025 Do You Have Any Dietary Restrictions? Yes Information not available 02/15/2025 Sex: Unknown Functional Status Question Answer Note LastModified by Organization D etails LastModified Time What is your exercise level? None Information not available 02/15/2025 Mental Status None recorded. Family History Relationship Description Onset Age of this Age Resolved Age Notes LastModified by Organization Details LastModified Time Maternal Grandmother Heart disease [id number] Not available 01/28/2023 23:56:26 Mother Family history of stroke [id number] [id number] Not available 01/28/2023 23:56:26 Mother Essential hypertension [id number] Not available 01/28/2023 23:56:26 Maternal Grandfather Family history of malignant neoplasm [id number] Not available 01/28/2023 23:56:26 Father Essential hypertension [id number] Not available 01/28/2023 23:56:26 Medical History Condition Response DIABETES, TYPE Y HYPERTENSION Y Gynecological HistoryNo gynecological history recorded. Obstetrics History GPAL:G 0 P 0 0 0 0 Past Encounters Encounter ID Performer Location Encounter Start Date Encounter Closed Date Diagnosis/Indication Diagnosis SNOMED-CT Code Diagnosis ICD10 Code Diagnosis Note [id number] [facility] [place] [address] [place] [address] 09/09/2021 00:00:00 09/09/2021 12:53:54 [id number] [facility] [place] [address] [place] [address] 09/12/2021 00:00:00 09/12/2021 11:13:48 [id number] [facility] [place] [address] [place] [address] 09/26/2021 00:00:00 09/26/2021 11:10:42 [id number] [facility] [place] [address] [place] [address] 10/22/2021 00:00:00 10/22/2021 14:48:30 [id number] [facility] [place] [address] [place] [address] 12/10/2021 00:00:00 12/10/2021 15:15:31 [id number] [facility] [address] [place] [address] 02/15/2025 15:40:41 02/15/2025 18:18:05 Pain in left foot [id number] 85183 M79.672 rice therapy Closed fra cture of metatarsal bone 01389887 S92.322A S92.332A S92.345A S92.355A x-rays reviewedno weight-lee ring left footpostop shoe dispensedf ollow-up 2 weeks for repeat x-rays [id number] [facility] [address] [place] [address] 03/02/2025 14:30:22 03/02/2025 16:15:29 Closed fracture of metatarsal bone 64507406 S92.322D S92.332D S92.345D S92.355D x-rays reviewedno weight-lee ring left footpostop shoe dispensedf ollow-up 2 weeks for repeat x-rays Pain in left foot 826156 3404 77763 M79.672 Resolved Health Concerns Section Related Observation LastModified by Organization Detai ls LastModified Time None Recorded Concern Status LastModified by Organization Details LastModified Time None Recorded Advance Directives Directive None Recorded Payers Encounter Date Sequence Insurance Name Policy Number Policy Moreno Covered Member ID Moreno Member ID Guarantor Name 02/15/2025 1 [place] Martha English [id number] Martha English 02/15/2025 2 [place] [facility] Martha English [id number] Martha English 03/02/2025 1 [place] Martha English [id number] Martha English 03/02/2025 2 [facility] Martha English [id number] Martha English Notes Date Note Type Note Provider Name and Address Organization Details Recorded Time 02/15/2025 text/html . Patient is a 54-year-old female diabetic she presents to the office with complaints of pain to her left foot she states that she had a hypoglycemic event and fell causing injury to her left foot. Patient states she is uncertain exactly what happened when she fell but she has had pain she underwent x-rays at the facility to which he stays and she had new x-rays today which confirms surgical neck fractures of the metatarsals 2 through 5. Patient denies any bruising of the foot she states that she does have some swelling. Patient states that she is able to walk about 4 ft without pain she states the pain is 9/10 and describes it as throbbing. Patient has taken anti-inflammatories to help with the discomfort. Patient states the injury happened on approximately 01/28/2025. Luis M Dunn DPM [address], [address], [place], [address], [employer] 02/15/2025 17:24:46 03/02/2025 text/html . Patient is a 54-year-old female who returns the office for follow-up on metatarsal fractures of the 2nd 3rd and 4th. Patient had repeat x-rays which shows fracture healing. Patient states she has continued wearing the postop shoe she denies any pain or discomfort with walking. She has significant callus formation at the fracture areas. Patient denies any other complaints. Luis M Dunn DPM [address], [address], [place], [address], [employer] 03/02/2025 15:11:34 OBGyn Episode No OBEpisode recorded.
--- OUTSIDE RECORDS SUMMARY | 2025-03-24 00:51 | XMS_ITS | Encounter Summary ---
Author Organization [facility] Address [address] [place] [address] Phone Care Team Providers Care Plywood Patcher Name Role Phone Sb Yañez Primary Care Provider + Harrison Dumont MD Primary Care Provider [phone] Shiraz Magana MD Primary Care Provider [phone] Reason for Referral * Diagnostic Imaging (Routine) - Closed Specialty Diagnoses / Procedures Referred By Contac t Referred To Contact Radiology Diagnoses Cognitive decline Abnormal motor coordination Procedures MRI Brain and Neuro 3D W WO Contrast MRI Pituitary including Brain W WO Contrast Imani Bingham MD Phone: tel: fax: [address] [address] Referral ID Status Reason Start Date Expiration Date Visits Re quested Visits Authorized [id number] Closed 04/04/2019 05/19/2019 1 1 Encounter Details Date Type Department Care Team (Late st Contact Info) Description 03/18/2019 Orders Only [facility] Endocrinology Metabolism and Lipid [address] [place] [address] [place] [address] Imani Bingham MD [address] [facility] [address] [place] [address] Cognitive decline (Primary Dx); Abnormal motor coordination Social History Tobacco Use Types Packs/Day Years Used Date Smoking Tobacco: Never Comments Unknown Sex and Gender Information Value Date Recorded Sex Assigned at Not on file 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 Antoine and Dr. Healy. T1-weighted sagittal MPRage images of the brain were postprocessed on a separate 3D workstation to generate segmented brain volumes using FreeSurfer. Results were compared to a normative cohort from [facility]. Graphs were sent to [employer]. Left hippocampus volume: 22nd percentile, Within 1 SD below the mean Right hippocampus volume: 48th percentile, at the mean Parietal lobe cortical thickness: 18th percentile, Between 1-2 SD below the mean Occipital lobe cortical thickness: 3rd percentile, Between 1-2 SD below the mean Frontal lobe cortical thickness: 16th percentile, Between 1-2 SD below the mean Left frontotemporal cortical thickness: 48th percentile, At the mean Right frontotemporal cortical thickness: 53rd percentile, At the mean Ventricular volume: 66 percentile, Within 1 SD above the mean Ratio of ventricular volume to cerebral volume: 55th percentile, At the mean Fazekas score: Mild Microbleeds: None IMPRESSION: Overall, the pattern of atrophy is nonspecific. The atrophy is most pronounced in the occipital lobes, where it approaches 2 standard deviations. The cerebellum is also notably atrophic, however this is not quantified by our measurements. Dictated by: Deann Healy M.D. The radiology attending physician has personally reviewed this study, and had reviewed and/or edited this written report and agrees with it. Electronically signed by: Laly Antoine M.D. Impressions 04/08/2019 4:06 PM CDT 1. No acute intracranial abnormality. 2. Mild cerebral atrophy and marked cerebellar atrophy, more pronounced than cerebral atrophy. 3. Volumetric data will be reported in an addendum to this study. Dictated by: Austin Castañeda M.D. The radiology attending physician has personally reviewed this study, and had reviewed and/or edited this written report and agrees with it. Electronically signed by: Laly Antoine M.D. Narrative 04/08/2019 4:06 PM CDT EXAMINATION: Magnetic resonance imaging (MRI) of the brain and brainstem without and with contrast HISTORY: 48-year-old woman with change in cognition, executive function, and mild ataxia. TECHNIQUE: Multiplanar multi-weighted MRI of the brain and brainstem was performed without and with intravenous contrast using the [facility] loss brain protocol. Contrast information: 8 mL Dotarem COMPARISON: None available. FINDINGS: There is significant cerebellar atrophy. There is also medullary atrophy and mild cerebral atrophy, less pronounced than cerebellar atrophy. The scalp and calvarium are normal. The superior sagittal sinus demonstrates normal venous flow. The corpus callosum is normal in shape and signal intensity. The pituitary and sella are normal. The brainstem and craniocervical junction are unremarkable. Diffusion weighted images reveal no hyperintensities to suggest acute cerebral infarction. The susceptibility weighted sequences reveal no evidence of acute or chronic hemorrhage. The ventricles are normal in size and position without evidence of hydrocephalus . There are no areas of abnormal contrast enhancement. The paranasal sinuses are normal. There are bilateral mastoid effusions. The orbits appear normal. Normal flow voids are demonstrated in the carotid arteries and basilar artery. Procedure Note Laly Antoine MD - 04/08/2019 EXAMINATION: Magnetic resonance imaging (MRI) of the brain and brainstem without and with contrast HISTORY: 48-year-old woman with change in cognition, executive function, and mild ataxia. TECHNIQUE: Multiplanar multi-weighted MRI of the brain and brainstem was performed without and with intravenous contrast using the [facility] loss brain protocol. Contrast information: 8 mL Dotarem COMPARISON: None available. FINDINGS: There is significant cerebellar atrophy. There is also medullary atrophy and mild cerebral atrophy, less pronounced than cerebellar atrophy. The scalp and calvarium are normal. The superior sagittal sinus demonstrates normal venous flow. The corpus callosum is normal in shape and signal intensity. The pituitary and sella are normal. The brainstem and craniocervical junction are unremarkable. Diffusion weighted images reveal no hyperintensities to suggest acute cerebral infarction. The susceptibility weighted sequences reveal no evidence of acute or chronic hemorrhage. The ventricles are normal in size and position without evidence of hydrocephalus . There are no areas of abnormal contrast enhancement. The paranasal sinuses are normal. There are bilateral mastoid effusions. The orbits appear normal. Normal flow voids are demonstrated in the carotid arteries and basilar artery. IMPRESSION: 1. No acute intracranial abnormality. 2. Mild cerebral atrophy and marked cerebellar atrophy, more pronounced than cerebral atrophy. 3. Volumetric data will be reported in an addendum to this study. Dictated by: Austin Castañeda M.D. The radiology attending physician has personally reviewed this study, and had reviewed and/or edited this written report and agrees with it. Electronically signed by: Laly Antoine M.D. Imani Bingham MD IMG MRI PROCEDURES Edited Res ult - Final documented in this encounter Visit Diagnoses Diagnosis Cognitive decline- Primary Abnormal motor coordination Cognitive decline Abnormal motor coordination documented in this encounter Care Teams Plywood Patcher Relationship Specialty Start Date End Date Sb Yañez PA [address] [place] [address] PCP - General 10/30/17 09/25/20 [place] [address] [place] [address] PCP - General Internal Medicine 09/26/20 10/25/24 Shiraz Magana MD [address] [place] [address] PCP - General Internal Medicine 10/26/24 documented as of this encounter
[2025-03-24 00:52] LABS: Partial Thromboplastin Time 28.7 Seconds (22.3-36.8)
--- OUTSIDE RECORDS SUMMARY | 2025-03-24 00:52 | XMS_ITS | Clinical Summary ---
Author Organization [facility] Address [address] [place] [address] Care Team Providers Care Student Affairs Vice President Name Role Phone Sb Yañez Primary Care Provider + Source Comments [facility],non-owned Affiliates and Associated Physician Practices is amultiple site organization consisting of ambulatory clinics and hospital sitesin [place], [place], [place] and [place]. This disclosure is being madepursuant to the Care Everywhere program and may not contain all information available regarding this patient. Last updated 18.[facility] Allergies Active Allergy Reactions Criticality Noted Date Comments Ibuprofen Headache 08/24/2019 Penicillins Rash Medium 08/24/2019 Sulfa Drugs Unknown 08/24/2019 Medications * Be aware that medications may not be up to date on this document. Alwaysverify current medications with the patient. BASAGLAR KWIKPEN (BASAGLAR) pen INJECT 4 UNITS SUBCUTANEOUSLY IN THE MORNING AND 2 IN THE EVENING 1 9 Active Insulin Lispro (ADMELOG SOLOSTAR) 100 UNIT/ML INJECT 8 UNITS SUBCUTANEOUSLY THREE TIMES DAILY 3 9 Active lisinopril (PRINIVIL; ZESTRIL) 10 MG tablet Take 10 mg by mouth once daily 3 9 Active furosemide (LASIX) 20 MG tablet Take 20 mg by mouth once daily Active gabapentin (NEURONTIN) 100 MG capsuleIndicat ions:Tremor Take 1 capsule by mouth 3 times daily 90 capsule 11 0 Active Active Problems No known active problems Immunizations Immunization Administration Dates Next Due INFLUENZA VACCINE, TRIV. (AF LURIA, FLUZONE TRIVALENT; 6MO+) (IIV3) 09/16/2017 Family History Medical History Relation Name Comments Ataxia Neg Hx Brain Tumor Neg Hx Social History Tobacco Use Types Packs/Day Years Used Date Smoking Tobacco: Never Smokeless Tobacco: Never Alcohol Use Standard Drinks/Week Comments Never 0 (1 standard drink = 0.6 oz pur e alcohol) AUDIT-C Answer Date Recorded Frequency of Alcohol Consumption Never 08/24/2019 Average Number of Drinks Not on file 019 Frequency of Binge Drinking Not on file 08/01 Comments No Sex and Gender Information Value Date Recorded Sex Assigned at Not on file Legal Sex Female 8:28 AM CDT Gender Identity Not on file Sexual Orientation Not on file Last Filed Vital Signs Vital Sign Reading Time Taken Comments Blood Pressure 155/79 12/13/2019 1:12 PM CASE MANAGER Pulse 82 12/13/2019 1:12 PM CASE MANAGER Temperature - - Respiratory Rate - - Oxygen Saturation - - Inhaled Oxygen Concentration - - Weight 51.3 kg (113 lb) 12/13/2019 1:12 PM CASE MANAGER Height 156.2 cm (5' 1.5 ) 12/13/2019 1:12 PM CASE MANAGER Body Mass Index 21.01 12/13/2019 1:12 PM CASE MANAGER Plan of Treatment Health Maintenance Due Date Last Done Comments COLOGUARD (AGES 45-75) - COL ON CA SCREENING 1968 COLON MONITORING 1968 COLONOSCOPY - COLON CA SCREENING 1968 CT COLONOGRAPHY - COLON CA SCREENING 1968 Colorectal Cancer Screening 1968 FIT - COLON CA SCREENING 1968 FLEX SIG - COLON CA SCREENING 1968 LIPID TESTING 1968 MAMMOGRAM 1968 PAP SMEAR 1968 HIV SCREENING 1983 HEPATITIS C SCREENING 05/27/1986 DTAP/TDAP/TD VACCINES (1 - Tdap) 1987 HEPATITIS B VACCINE (1 of 3 - 19+ 3-dose series) 1987 PNEUMOCOCCAL VACCINE 50+ (1 of 1 - PCV) 2018 ZOSTER VACCINE (1 of 2) 2018 COVID-19 VACCINE ( - 2023-2 5 season) 2024 DEPRESSION SCREENING 11/30/2024 INFLUENZA VACCINE (Season Ended) 2025 09/16/20 17 HIB VACCINE Aged Out No longer eligi ble based on patient's age to complete this topic HPV VACCINE Aged Out No longer eligi ble based on patient's age to complete this topic MENINGOCOCCAL (Group B) VACC INE SHARED DECISION-MAKING Aged Out No longer eligibl e based on patient's age to complete this topic MENINGOCOCCAL GROUPS A/C/Y/W VACCINE Aged Out No longer eligible b ased on patient's age to complete this topic Insurance [facility] Care Teams Student Affairs Vice President Relationship Specialty Start Date End Date Sb Yañez PA [address] [place] [phone] PCP - General Physician Ship Purser 08/24/19
--- OUTSIDE RECORDS SUMMARY | 2025-03-24 00:52 | XMS_ITS | CONTINUITY OF CARE DOCUMENT ---
Author Name eligio del valle Address Unknown Organization [facility] Address [address] [place] [address] Phone [phone] Care Team Providers Care Integrity Engineer Name Role Phone Liset Nielson MD Unavailable ROSITA AVELAR Unavailable ROSITA AVELAR Unavailable [phone] PROBLEMS Condition Status Date Provider Notes HTN essential active Joellen Woo MD Diabetes mellitus, type 1 active Joellen lora MD Preoperative cardiovascular examination active Joellen Woo MD Hypercholesterolemia active Joellen Woo MD Abnormal electrocardiogram active Joellen kenney MD Diabetes, Type 2 active ? Liset Nielson MD Hyperlipidemia active ? Liset Nielson MD Hypertension active ? Liset Nielson MD Snoring active Liset Nielson MD Edema - localized active Liset Granados ENCOUNTERS Date Type Provider Location Encounter Diag nosis - In-person encounter Office Visit Liset Nielson MD [place] [facility] - In-person encounter Office Visit Liset Nielson MD [place] - In-person encounter Office Visit Liset Nielson MD [place] [facility] - In-person encounter Office Visit Liset Nielson MD [place] [facility] - In-person encounter Office Visit Liset Nielson MD [place] [facility] Diabetes, Type 2HyperlipidemiaHypertensionSnoringEdema - localized - In-person encounter Office Visit Joellen Woo MD [place] [facility] HTN essentialDiabetes mellitus, type 1Preoperative cardiovascular examinationHypercholesterolemiaAbnormal electrocardiogram VITAL SIGNS Date Observation Value Provider Body Mass Index (Ratio) 22.29 kg/m2 Iliana Nielson MD blood pressure, diastolic 80 mm[Hg] Da carroll Aris blood pressure, systolic 138 mm[Hg] Dac ia Aris oxygen saturation, oximetry 97 % Jesenia Aris respiratory rate E&M 16 /min Jesenia V oss pulse rate 71 /min Jesenia Aris weight E&M 118 [lb_av] Jesenia Aris height E&M 61 [in_i] Jesenia Aris Body Mass Index (Ratio) 24.94 kg/m2 Kj Henley blood pressure, diastolic 60 mm[Hg] Da carroll Aris blood pressure, systolic 124 mm[Hg] Dac ia Aris oxygen saturation, oximetry 98 % Jesenia Aris respiratory rate E&M 16 /min Jesenia V oss pulse rate 94 /min Jesenia Aris weight E&M 132 [lb_av] Jesenia Aris height E&M 61 [in_i] Jesenia Aris Body Mass Index (Ratio) 24.94 kg/m2 Iliana Nielson MD blood pressure, cuff size regular Denisse Alonso blood pressure, diastolic 70 mm[Hg] Denisse Alonso blood pressure, systolic 124 mm[Hg] Jazz Alonso oxygen saturation, oximetry 99 % Pricilla Alonso respiratory rate E&M 16 /min Pricilla Alonso pulse rate 78 /min Pricilla Alonso weight E&M 132 [lb_av] Pricilla Alonso height E&M 61 [in_i] Pricilla Alonso Body Mass Index (Ratio) 26.45 kg/m2 Iliana Nielson MD blood pressure, cuff size regular Ke rri Lisekevin blood pressure, diastolic 71 mm[Hg] Ke rri Lisekevin blood pressure, systolic 145 mm[Hg] Dom ri Vidal oxygen saturation, oximetry 98 % Faviola Lezamakevin respiratory rate E&M 16 /min Faviola Pillai jeromehortenciakevin weight E&M 140 [lb_av] Faviola Emilyelliott nicoleer height E&M 61 [in_i] Faviola Elier bonnieer pulse rate 72 /min Faviola Thapa bonnieer blood pressure, diastolic 80 mm[Hg] Ke rri Richardsalvadorveronicakevin blood pressure, systolic 130 mm[Hg] Dom Taverasernacassandrakevin pulse rate 82 /min Faviola Elier er oxygen saturation, oximetry 97 % Faviola Richardsalvadorveronicakevin respiratory rate E&M 16 /min Faviola Freya jeromehortenciakevin Body Mass Index (Ratio) 26.07 kg/m2 Jarquin narendra Vidal weight E&M 138 [lb_av] Faviola Elier lder blood pressure, diastolic 71 mm[Hg] Kr isty Desiree blood pressure, systolic 124 mm[Hg] Kri sty Winona pulse rate 89 /min Kim Desiree oxygen saturation, oximetry 99 % Kim Desiree respiratory rate E&M 18 /min Kim Desiree Body Mass Index (Ratio) 26.22 kg/m2 Srinath ty Desiree weight E&M 138.8 [lb_av] Kim Winona height E&M 61 [in_i] Kim Ramírez ALLERGIES Allergy Name Onset Date Reaction Criticality Status SULFA Low Criticality active PCN Low Criticality active RESULTS Date Observation Value Provider Reference Range Interpretation Location 3 pro brain natriuretic peptide 150 pg/mL [facility] 0-249 3 thyroid stimulating hormone, serum 0.821 u[IU]/mL [facility] 0.450-4.500 3 alanine aminotransferase (SGPT), serum 12 1/L [facility] 0-32 3 aspartate aminotransferase (SGOT), serum 14 1/L [facility] 0-40 3 alkaline phosphatase, serum 60 1/L [facility] 39-117 3 bilirubin, serum, total 0.4 mg/dL [facility] 0.0-1.2 3 albumin/globulin ratio, serum 1.9 [facility] 1.2-2.2 3 globulin, serum 2.3 [facility] 1.5-4.5 3 albumin, serum 4.4 g/dL [facility] 3.5-5.5 3 protein, total, serum 6.7 g/dL [facility] 6.0-8.5 3 calcium, serum 10.2 mg/dL [facility] 8.7-10.2 3 carbon dioxide, venous blood 28 mmol/L [facility] 20-29 3 chloride, serum 102 mmol/L [facility] 96-106 3 potassium, serum 5.8 mmol/L [facility] 3.5-5.2 High 3 sodium, serum 143 mmol/L [facility] 193-747 8419/11/0 3 urea nitrogen/creatinine ratio, serum 20 [facility] 9-23 3 eGFR if 95 mL/min/{1 .73_m2} [facility] >59 3 eGFR if not 82 mL/min/{1 .73_m2} [facility] >59 3 creatinine, serum 0.83 mg/dL [facility] 0.57-1.00 3 urea nitrogen, blood 17 mg/dL [facility] 6-24 3 blood glucose, random 118 mg/dL [facility] 65-99 High 9 lipoprotein, beta, serum, point, quantitative, calculated 91 mg/dL [facility] 0-99 9 very low density lipoproteins 21 mg/dL [facility] 5-40 9 HDL cholesterol, serum 91 mg/dL [facility] >39 9 triglyceride, serum, random 103 mg/dL [facility] 0-149 9 cholesterol, serum 203 mg/dL [facility] 100-199 High 9 alanine aminotransferase (SGPT), serum 15 1/L [facility] 0-32 9 aspartate aminotransferase (SGOT), serum 22 1/L [facility] 0-40 9 alkaline phosphatase, serum 71 1/L [facility] 39-117 9 bilirubin, serum, total <0.2 mg/dL [facility] 0.0-1.2 9 albumin/globulin ratio, serum 1.5 [facility] 1.2-2.2 9 globulin, serum 2.6 [facility] 1.5-4.5 9 albumin, serum 3.9 g/dL [facility] 3.5-5.5 9 protein, total, serum 6.5 g/dL [facility] 6.0-8.5 9 calcium, serum 9.4 mg/dL [facility] 8.7-10.2 9 carbon dioxide, venous blood 28 mmol/L [facility] 18-29 9 chloride, serum 97 mmol/L [facility] 96-106 9 potassium, serum 4.5 mmol/L [facility] 3.5-5.2 9 sodium, serum 137 mmol/L [facility] 321-679 2904/03/2 9 urea nitrogen/creatinine ratio, serum 18 [facility] 9-23 9 eGFR if 102 mL/min/{1 .73_m2} [facility] >59 9 eGFR if not 88 mL/min/{1 .73_m2} [facility] >59 9 creatinine, serum 0.79 mg/dL [facility] 0.57-1.00 9 urea nitrogen, blood 14 mg/dL [facility] 6-24 9 blood glucose, random 277 mg/dL [facility] 65-99 High HISTORY OF MEDICATION USE Medication Status Instructions Dates Provider Indications Com ments LASIX 20 MG ORAL TABLET active once daily Liset Nielson MD [facility] DAILY MULTIPLE WOMEN 50+ ORAL TABLET active take one daily Jesenia Aris CALCIUM CITRATE + D 250-200 MG-UNIT ORAL TABLET completed take one tablet daily - Jesenia Aris [facility] MAGNESIUM 250 MG ORAL TABLET completed take one daily - Jesenia Aris LASIX 20 MG ORAL TABLET completed take one pill a day - Jesenia Hurst XULANE 150-35 MCG/24HR TRANSDERMAL PATCH WEEKLY completed once weekly - Faviola Drake VOLTAREN 1 % TRANSDERMAL GEL completed to affected area 4 times a dya - Faviola Drake TRIAMCINOLONE ACETONIDE CREA 0.025% completed as directed - Jesenia Hurst ONDANSETRON HCL 4 MG ORAL TABLET completed take 1 tablet by mouth 3 times a day as needed - Faviola Drake NOVOLOG FLEXPEN 100 UNIT/ML SUBCUTANEOUS SOLUTION PEN-INJECTOR active as directed Kim Ramírez MONONESSA 0.25-35 MG-MCG ORAL TABLET completed one tablet by mouth once daily - Faviola Drake MIRENA (52 MG) INTRAUTERINE DEVICE completed every 5 years - Faviola Drake LISINOPRIL 20 MG ORAL TABLET active take one pill twice a day Faviola Drake LANTUS 100 UNIT/ML SUBCUTANEOUS SOLUTION active 3 ml Kim Ramírez IBUPROFEN 800 MG TABS (IBUPROFEN TABS) completed take 1 tablet by mouth 3 times a day as needed for pain - Faviolagaldino Drake HYDROCODONE-ACET AMINOPHEN 5-325 MG ORAL TABLET completed every 4-6 hours as needed for pain - Faviola Drake HUMALOG 100 UNIT/ML SUBCUTANEOUS SOLUTION completed - [employer] GLUCAGON EMERGENCY 1 MG INJECTION KIT active Kim Ramírez CIPROFLOXACIN HCL 500 MG ORAL TABLET completed one tablet by mouth once daily - JeseniaFitsistant SOCIAL HISTORY Date Observation Value Provider alcohol use no Jesenia Aris smoking status Never smoker Jesenia Aris social history E&M S moking History: Leilani posadas has never smoked. Liset Nielson MD social history reviewed E&M revi ewed - no changes required Liset Nielson MD alcohol use no Jesenia Sosass smoking status Never smoker Jesenia Sosass social history E&M S moking History: Leilani posadas has never smoked. Liset Nielson MD social history reviewed E&M revi ewed - no changes required Liset Nielson MD alcohol use no Pricilla Gavin smoking status Never smoker Pricilla Gavin social history reviewed E&M revi ewed - no changes required Liset Nielson MD alcohol use no Faviola Th[place] smoking status Never smoker Faviola garcia alcohol use no Faviola weir smoking status Never smoker Faviola garcia social history reviewed E&M revi ewed - no changes required Joellen Woo MD number of grandchildren Liset Ramírez smoking status Never smoker Kim Ramírez FAMILY HISTORY Family Member Condition Mother Family History of Hy pertension: Mother Family History of Co ngestive Heart Failure: Mother Family History of Hy pertension: Mother Family History of Hy perlipidemia: Maternal Grandmother Family History of C ongestive Heart Failure: Maternal Grandmother Family History of H ypertension: Maternal Grandfather Family History of H ypertension: Maternal Grandfather Family History of H yperlipidemia: Mother Family History of Hy pertension: Mother Family History of Hy perlipidemia: INSURANCE PROVIDERS Payer name Policy type / Coverage type [employer] red constitution party ID [id number] [id number] ADVANCE DIRECTIVES Name Date DISCUSSED - NO DECISION MADE TREATMENT PLAN Date Name Performer Cardiology follow up :05/16/18 echo reviewed: 1 . Normal left ventricular systolic function. Normal left ventricular size. Normal left ventricular wall t hickness. Mitral inflow Doppler demonstrates pseudonormal pattern consistent with diastolic d ysfunction. Normal E/E` 12.4. Left ventricular ejection fraction is estimated at 60 %. 2 . Normal right ventricular size. Normal right ventricular systolic function. 3 . The left atrium is normal in size. 4 . Normal appearing tricuspid valve leaflets. There is mild tricuspid regurgitation. Right ventricular s ystolic pressure is within normal limits. IVC is normal in size with normal respiratory response. E stimated peak pulmonary artery systolic pressure is 27. Liset Nielson MD Cardiology follow up:Per PCP. Sa alexis Nielson MD Cardiology follow up :1. No evidence of a deep vein thrombosis of the lower extremities bilaterally. 2 . No evidence of significant venous insufficiency of the lower extremities bilaterally. 3 . Doppler waveform signal demonstrates pulsatile flow in the veins listed above. Liset Nielson MD Cardiology follow up : B P today: 138/80 P rior BP: 124/60 (02/05/2018) Labs Reviewed: C reat: 0.79 (02/25/2018) C hol: 203 (02/25/2018) HDL: 91 (02/25/2018) Her updated medication list for this problem includes: Lasix 20 Mg Oral Tablet (Furosemide) ..... Once daily Lisinopril 20 Mg Oral Tablet (Lisinopril) ..... Take one pill twice a day Liset Nielson MD Cardiology follow up : T he following medications were removed from the medication list: Humalog 100 Unit/ml Subcutaneous Solution (Insulin lispro (human)) Her updated medication list for this problem includes: Lisinopril 20 Mg Oral Tablet (Lisinopril) ..... Take one pill twice a day Lantus 100 Unit/ml Subcutaneous Solution (Insulin glargine) ..... 3 ml Novolog Flexpen 100 Unit/ml Subcutaneous Solution Pen-injector (Insulin aspart) ..... As directed Glucagon Emergency 1 Mg Injection Kit (Glucagon (rdna)) Joellen Henley Cardiology follow up :check for reflux and venous dopplers with leg edema e cho for lvef has hx of valular dz with tr ? right sided failure O rders: 9 9215 HIGH Complex (CPT-01211) C omplete Echo (CPT-12077) V enous Doppler Bilateral LE - Reflux (CPT-23033) Liset Nielson MD Cardiology follow up : m ay have norm coausing the right heart to cause edema needs sleep study O rders: 9 9215 HIGH Complex (CPT-24440) C omplete Echo (CPT-40339) V enous Doppler Bilateral LE - Reflux (CPT-41699) Liset Nielson MD Cardiology follow up :restart lasix for leg edema T he following medications were removed from the medication list: Lasix 20 Mg Oral Tablet (Furosemide) ..... Take one pill a day Her updated medication list for this problem includes: Lisinopril 20 Mg Oral Tablet (Lisinopril) ..... Take one pill twice a day Liset Nielson MD Cardiology Follow up :Followed by Dr. Bingham at [facility] diabetes. Liset Nielson MD Cardiology Follow up :Will see Dr. Bingham who will be managing her cholesterol, which patient reports is high. Liset Nielson MD Cardiology Follow up Liset wilson MD Cardiology Follow up : H er updated medication list for this problem includes: Lasix 20 Mg Tabs (Furosemide) ..... Take one pill a day Lisinopril 20 Mg Oral Tabs (Lisinopril) ..... Take one pill twice a day Liset Nielson MD Cardiology Follow up Liset wilson MD Cardiology Follow up Liset wilson MD Cardiology Follow up : H er updated medication list for this problem includes: Lasix 20 Mg Tabs (Furosemide) Lisinopril 20 Mg Oral Tabs (Lisinopril) ..... Take one pill twice a day Liset Nielson MD Cardiology Follow up :lasix 20mg daily Liset Nielson MD Cardiology Follow u p: O rders: S leep Study Home (CPT-87244) 9 9215 HIGH Complex (CPT-41376) Liset Nielson MD Cardiology Follow u p:may have norm coausing the right heart to cause edema needs sleep study O rders: S leep Study Home (CPT-16808) 9 9215 HIGH Complex (CPT-42080) Liset Nielson MD Cardiology Follow u p Liset Nielson MD Cardiology Follow u p Liset Nielson MD Cardiology Follow u p Liset Nielson MD Cardiology Follow u p:will increase lisinopril to 10 bid H er updated medication list for this problem includes: Lisinopril 10 Mg Oral Tabs (Lisinopril) ..... One tablet by mouth once daily Liset Nielson MD Cardiology Joellen Woo MD Cardiology Joellen Woo MD Cardiology Joellen Woo MD Cardiology Joellen Woo MD Date Name TSH, 3RD GENERATION W/REFLEX TO FT4 PROBNP, N TERMINAL COMPREHENSIVE METABO LIC PANEL, W/EGFR Venous Doppler Bilat eral LE - Reflux PROBNP, N TERMINAL THYROID PANEL WITH T SH, 3RD GENERATION B TYPE NATRIURETIC P EPTIDE (BNP) COMPREHENSIVE METABO LIC PANEL, W/EGFR LIPID PANEL COMPREHENSIVE METABO LIC PANEL, W/EGFR Venous Doppler Bilat eral LE - Reflux Complete Echo LIPID PANEL COMPREHENSIVE METABO LIC PANEL W/EGFR Sleep Study Home HISTORY OF PROCEDURES Procedure Date Procedure Name Provider Procedure Notes S tatus Lipid Strip Liset Nielson MD completed EKG Liset Nielson MD completed EKG Liset Nielson MD completed EKG Liset Nielson MD completed SNOMED-CT: 298240582 845780 Current Medications Documented Liset Nielson MD completed EKG Liset Nielson MD completed SNOMED-CT: 791385597 943968 Current Medications Documented Liset Nielson MD completed EKG Liset Nielson MD completed SNOMED-CT: 246225307 480956 Current Medications Documented Liset Nielson MD completed SNOMED-CT: 35370371 Physical Exam, Performed: Pulse Exam of Foot Joellen Woo MD completed EKG Liset Nielson MD completed SNOMED-CT: 294180255 199468 Current Medications Documented Liset Nielson MD completed
--- OUTSIDE RECORDS SUMMARY | 2025-03-24 00:52 | XMS_ITS | Clinical Summary ---
Author Organization [facility] Address [address] [place] [address] Phone Care Team Providers Care Card Table Attendant Name Role Phone Alysia Ramirez MD Primary Care Provider [phone] Allergies Active Allergy Reactions Criticality Noted Date Comments Penicillins Rash Low 11/05/2017 Sulfa (Sulfonamide Antibiotics) Other (See Comments) 11/05/2017 Urinary retention and constipation Medications INSULIN LISPRO (HUMALOG SUBCUT) Inject by subcutaneous injection SSI: Based on glucose and food intake . Active insulin glargine (LANTUS) 100 unit/mL injection Inject 8 Units by subcutaneous injection daily with breakfast. Active insulin glargine (LANTUS) 100 unit/mL injection Inject 7 Units by subcutaneous injection daily at bedtime. Active lisinopril (PRINIVIL) 10 mg tablet Take 10 mg by mouth daily. Active furosemide (LASIX) 20 mg tablet Take 10 mg by mouth daily. Active magnesium oxide 250 mg Tablet Take 250 mg by mouth daily. Active aspirin (ECOTRIN EC) 81 mg Tablet, Delayed Release (E.C.) Take 81 mg by mouth daily. Active HYDROcodone-walker taminophen (NORCO) 10-325 mg Tablet Take 1 Tablet by mouth every 4 hours as needed pain. Max Daily Amount: 6 Tablets 60 Tablet 11/13/2017 6:00 PM SUPERVISING FILM OR VIDEOTAPE EDITOR 7 Active docusate sodium (COLACE) 100 mg capsule Take 1 Capsule by mouth 2 times daily. 60 Capsule 6 11/13/2017 6:00 PM SUPERVISING FILM OR VIDEOTAPE EDITOR 7 Active Active Problems No known active problems Immunizations Immunization Administration Dates Next Due Influenza Seasonal Unspecified Formulation IM Social History Tobacco Use Types Packs/Day Years Used Date Smoking Tobacco: Never Smokeless Tobacco: Never Alcohol Use Standard Drinks/Week Comments Yes 0 (1 standard drink = 0.6 oz pur e alcohol) occasionally Comments No Sex and Gender Information Value Date Recorded Sex Assigned at Not on file Legal Sex Female 3:04 PM SUPERVISING FILM OR VIDEOTAPE EDITOR Gender Identity Not on file Sexual Orientation Not on file Last Filed Vital Signs Vital Sign Reading Time Taken Comments Blood Pressure 117/67 11/13/2017 7:08 PM SUPERVISING FILM OR VIDEOTAPE EDITOR Pulse 55 11/13/2017 5:00 PM SUPERVISING FILM OR VIDEOTAPE EDITOR Temperature 37 C (98.6 F) 11/13/2017 7:08 PM SUPERVISING FILM OR VIDEOTAPE EDITOR Respiratory Rate 14 11/13/2017 7:08 PM SUPERVISING FILM OR VIDEOTAPE EDITOR Oxygen Saturation 98% 11/13/2017 7:08 PM SUPERVISING FILM OR VIDEOTAPE EDITOR Inhaled Oxygen Concentration - - Weight 56.7 kg (125 lb) 11/13/2017 10:52 AM SUPERVISING FILM OR VIDEOTAPE EDITOR Height 157.5 cm (5' 2 ) 11/13/2017 10:52 AM SUPERVISING FILM OR VIDEOTAPE EDITOR Body Mass Index 22.86 11/13/2017 10:52 AM SUPERVISING FILM OR VIDEOTAPE EDITOR Plan of Treatment Health Maintenance Due Date Last Done Comments DTAP/TDAP/TD VACCINES (1 - Tdap) 1987 HEPATITIS B VACCINES (1 of 3 - 19+ 3-dose series) 1987 HPV/Cotest (21-29) 1989 CERVICAL CANCER SCREENING 1998 HPV/Cotest (30-65) 1998 PAP SMEAR 1998 BREAST CANCER SCREENING 2008 FIT-DNA Q 3 years 2013 FIT/FOBT Q 1 year 2013 Flex Sig/CT Colonography Q 5 years 2013 ZOSTER VACCINE (1 of 2) 2018 COLORECTAL SCREENING 11/07/2023 11/07/2013, 09/22/20 06 Colorectal Cancer Screening 11/07/2023 INFLUENZA VACCINE (#1) 2024 09/16/2017 Medical Devices Implanted Type Area Open Hearth Furnace Operator Device Identifier Shelf Expiration Date Model / Serial / Lot Sealant Floseal 10ml [id number] - [id number] Implanted:Qty : 1 on 11/13/2017 by Andrei Senior MD at [facility] Sealant N/A: Spine Lumbar GARCIA- [employer]ENCE [id number] 02/08/2019 [id number] / / [id number] Procedures Procedure Name Priority Date/Time Associated Diagnosis Comments COLONOSCOPY REPORT Routine 11/07/2013 from Last 3 Months or Most Recently Relevant to Health Maintenance Results * (ABNORMAL) COLONOSCOPY REPORT (11/07/2013) us Krista Hudson MD GI PROCEDURE ORDERABLES Edited R esult - Final [facility]# [id number] [address] [place] [address] from Last 3 Months or Most Recently Relevant to Health Maintenance Insurance BCBS BLUE ACCESS/TRUE BLUE PPO RX [employer] Commercial Advance Directives For more information, please contact: [phone] * Full Code (Latest Code Status on File) Date Activated Date Inactivated Comments 11/13/2017 3:33 PM 11/13/2017 9:30 PM * Full Code Date Activated Date Inactivated Comments 11/13/2017 11:43 AM 11/13/2017 3:33 PM Care Teams Card Table Attendant Relationship Specialty Start Date End Date Alysia Ramirez MD [address] [place] [address] PCP - General Internal Medicine 11/05/17
[2025-03-24] MEDS: HYDROcodone/acetaminophen (*CRX) 5-325 MG TABLET 2 TAB PO (01:23)
--- NOTE | 2025-03-24 01:46 | ED_ITS ---
HPI - General Adult General Chief complaint: Chest Pain Stated complaint: LEFT CHEST & SHOULDER PRESSURE Time Seen by Provider: 03/24/25 00:30 History of Present Illness HPI narrative: This is a 54-year-old female presenting ED with chief complaint shoulder/chest pain. Pain started just prior to arrival. It is a sharp pain in left shoulder that radiates into chest. It is worse with movement, specifically active or passive movement of her left arm. No other symptoms such as diaphoresis, nausea vomiting, exertional component, fevers productive cough or lower extremity edema. She has not taken anything for pain control. Related Data Home Medications ?Medication ?Instructions ?Recorded ?Confirmed ?Last Taken ?Type aspirin 81 mg tablet 81 mg PO DAILY 04/11/21 04/11/21 Unknown History furosemide 20 mg tablet 20 mg PO DAILY 04/11/21 04/11/21 Unknown History gabapentin 100 mg tablet 100 mg PO TID 04/11/21 04/11/21 Unknown History insulin glargine 100 unit/mL (3 18 unit subcut QAM 04/11/21 04/11/21 Unknown History mL) subcutaneous pen (Basaglar KwikPen U-100 Insulin) insulin lispro 100 unit/mL 5 unit subcut TID 04/11/21 04/11/21 Unknown History subcutaneous pen (Admelog SoloStar U-100 Insulin lispro) lisinopril 10 mg tablet 10 mg PO DAILY 04/11/21 04/11/21 Unknown History loratadine 10 mg tablet (Claritin) 10 mg PO DAILY 04/11/21 04/11/21 Unknown History Allergies Allergy/AdvReac Type Severity Reaction Status Date / Time Penicillins AdvReac Unknown Verified 03/24/25 00:23 Sulfa (Sulfonamide AdvReac Unknown Verified 03/24/25 00:23 Antibiotics) sour cream Allergy Mild Itching Uncoded 03/24/25 00:23 [facility] Past Medical History Medical History Type 1 diabetes mellitus Cerebellar ataxia Social History Social History Smoking status: Never smoker Alcohol intake: never Substance use: never Substance use type: does not use Gender identity (if verbalized by the patient): Female Spiritual care concerns: No Exam 2 Narrative: APPEARANCE: No apparent distress. Head: atraumatic. EYES: EOMI, NOSE: Atraumatic NECK: Trachea midline RESPIRATORY: No increased rate of breathing CTAB CARDIOVASCULAR: RRR, no peripheral edema ABDOMINAL: Non-distended MUSCULOSKELETAl: Reproducible Tenderness to palpation over the anterior deltoid and left pectoral muscle. Increased pain on movement of the left arm at the shoulder. Size Marker strength is intact. Pulses are +2. All compartments are soft. NEURO: Alert. Moving 4/4 extremities SKIN:: Warm, dry. Normal color PSYCHIATRIC: Normal affect Course Vital Signs Vital signs: Vital Signs Temperature 97.9 F 03/24/25 00:09 Pulse Rate 79 03/24/25 00:09 Respiratory Rate 18 03/24/25 00:09 Blood Pressure 156/67 H 03/24/25 00:09 Pulse Oximetry 97 03/24/25 00:09 Oxygen Delivery Room Air 03/24/25 00:09 Temperature 97.9 F 03/24/25 00:09 Pulse Rate 68 03/24/25 02:16 Respiratory Rate 18 03/24/25 02:16 Blood Pressure 115/53 L 03/24/25 02:16 Pulse Oximetry 96 03/24/25 02:16 Oxygen Delivery Room Air 03/24/25 00:09 Medical Decision Making MDM Narrative Medical decision making narrative: -Course: 54-year-old female presenting for left-sided shoulder and chest pain. Pain is reproducible with palpation/movement. Appears to be musculoskeletal. She was given pain control with some improvement. Laboratory studies, chest x- ray shoulder x-ray EKG unremarkable. Troponins negative x2. Patient will be discharged back to detention with NSAIDs and muscle relaxers. Given return precautions. -DDX includes but is not limited to: Muscle strain, sprain, impingement syndrome, ACS, pneumonia, pneumothorax -Co-morbidities complicating care: Cerebellar ataxia diabetes -Social determinants of health: senior care resident denies drugs or alcohol -Independent interpretation of studies: Independent EKG interpretation: Rhythm [sinus], Rate [79], [place] -[normal], PA -[normal], QRS [narrow], QTC [normal], T waves -[negative for concerning inversions], ST Segments - [Negative for concerning elevations] Final interpretations: [Normal Sinus Rhythm] Vital Signs Vital Signs: Vital Signs Temperature 97.9 F 03/24/25 00:09 Pulse Rate 79 04/25/25 00:09 Respiratory Rate 18 03/24/25 00:09 Blood Pressure 156/67 H 03/24/25 00:09 Pulse Oximetry 97 03/24/25 00:09 Oxygen Delivery Room Air 03/24/25 00:09 Temperature 97.9 F 03/24/25 00:09 Pulse Rate 68 03/24/25 02:16 Respiratory Rate 18 03/24/25 02:16 Blood Pressure 115/53 L 03/24/25 02:16 Pulse Oximetry 96 03/24/25 02:16 Oxygen Delivery Room Air 03/24/25 00:09 Lab Data 03/24/25 00:20 03/24/25 00:20 Labs: Lab Results 03/24/25 03/24/25 Range/Units 00:20 03:02 WBC 9.1 (4.5-10.0) K/mm3 RBC 3.86 L (4.2-5.4) M/mm3 Hgb 10.8 L (12.0-15.0) g/dL Hct 34.3 L (37.0-47.0) % MCV 88.9 (80-100) fl MCH 28.0 (26-34) pg MCHC 31.5 L (32-36) g/dl RDW 13.8 (11.5-14.5) % Plt Count 279 (150-375) k/mm3 MPV 9.5 (7.4-10.4) fl Immature Gran % (Auto) 0.4 (0-0.5) % Neut % (Auto) 55.9 (45.5-73.1) % Lymph % (Auto) 31.7 (18.3-44.2) % [place] % (Auto) 9.5 H (2.6-8.5) % Eos % (Auto) 2.1 (0-4.4) % Baso % (Auto) 0.4 (0.2-1.2) % Lymph # (Auto) 2.88 (0.9-3.2) K/mm3 [place] # (Auto) 0.9 H (0.1-0.6) K/mm3 Eos # (Auto) 0.2 (0-0.3) K/mm3 Baso # (Auto) 0.0 (0.0-0.1) K/mm3 Abs Immat Gran (auto) 0.04 H (0.00-0.031) K/mm3 Absolute Neuts (auto) 5.1 (1.3-6.7) K/mm3 Absolute Nucleated RBC 0.000 (0.0-0.012) K/mm3 Nucleated RBC % 0.0 (0.0-0.2) % PT 12.5 (11.1-14.7) Seconds INR 0.9 APTT 28.7 (22.3-36.8) Seconds Sodium 132 L (137-145) mmol/L Potassium 4.1 (3.4-5.0) mmol/L Chloride 95 L (98-107) mmol/L Carbon Dioxide 27 (22-30) mmol/L Anion Gap 10 (4-12) mmol/L BUN 29 H (7-17) mg/dL Creatinine 0.86 (0.7-1.0) mg/dL Estim Creat Clear Calc 67 ml/min Estimated GFR > 60 (59 - ) Glucose 287 H (65-110) mg/dL Calcium 8.6 (8.4-10.2) mg/dL Total Bilirubin 0.2 (0.2-1.3) mg/dL AST 26 (14-36) U/L ALT 22 (6-35) U/L Alkaline Phosphatase 90 (38-126) U/L Troponin I < 0.012 < 0.012 (0.000-0.034) ng/mL Total Protein 7.0 (6.3-8.2) g/dL Albumin 3.7 (3.5-5.1) g/dL Lipase 79 (23-300) U/L Discharge Plan Discharge Clinical Impression: Acute shoulder pain Patient Disposition: Home Condition: Stable Instructions: Antibiotic Form, Shoulder Pain (ED) Additional Instructions: You were seen in the emergency department for shoulder chest pain. Please this is musculoskeletal pain. Please try Tylenol and Robaxin for your pain. Please follow-up your primary care physician for further management. If you develop any new or worsening symptoms return to ED for re-evaluation. Patient Language: Bengali Prescriptions: New acetaminophen 500 mg capsule 1,000 mg PO Q6H PRN (Reason: pain) Qty: 60 0RF methocarbamol 750 mg tablet 1,500 mg PO TID Qty: 42 0RF No Action lisinopril 10 mg Tablet 10 mg PO DAILY aspirin 81 mg Tablet 81 mg PO DAILY furosemide 20 mg Tablet 20 mg PO DAILY loratadine [Claritin] 10 mg Tablet 10 mg PO DAILY gabapentin 100 mg Tablet 100 mg PO TID insulin lispro [Admelog SoloStar U-100 Insulin] 100 unit/mL Insulin Pen 5 unit SUBCUT TID Rx Instructions: TID with meals Basaglar KwikPen U-100 Insulin 100 unit/mL (3 mL) Insulin Pen 18 unit SUBCUT QAM Follow-up/Referrals: Otilio,ANNEL Douglass [Primary Care Provider] -
--- NOTE | 2025-03-24 02:52 | ECG_ITS ---
Test Date: 2025-03-24 02:59:04 Measurements Intervals [place] Rate: 67 P: 28 DC: 157 QRS: -16 QRSD: 88 T: 5 QT: 403 QTc: 427 Interpretive Statements SINUS RHYTHM LOW QRS VOLTAGE IN PRECORDIAL LEADS POSSIBLE RIGHT VENTRICULAR CONDUCTION DELAY MINIMAL Q WAVES- HIGH LATERAL LEADS BORDERLINE T WAVE ABNORMALITY- INFERIOR LEADS BORDERLINE ECG Compared to ECG 03/24/2025 00:18:12 No significant changes Electronically Signed On 03-24-2025 07:10:07 CDT by Wilmer Diaz D.O.
[2025-03-24 03:31] LABS: Troponin I < 0.012 ng/mL (0.000-0.034)
--- NOTE | 2025-03-24 07:14 | PC.NURSE ---
Assumed care of pt from MILLIE Puente.
== END 2025-03-24 10:22 | disposition home or self-care (01) ==
PROVIDERS: Emergency Provider Emergency Medicine; PCP Physician Assistant
DX: M25.512 Pain in left shoulder (principal); E10.9 Type 1 diabetes mellitus without complications; Z79.4 Long term (current) use of insulin
CPT/HCPCS: 36415; 71046; 73030; 80053; 83690; 84484; 85025; 85610; 85730; 93005; 99284; A9270